=== PATIENT | male | born 1970 | race Caucasian/White ===

== ENCOUNTER 2017-11-24 17:48 | Inpatient (IN) | payer OTHER ==
[2017-11-24 18:32] LABS: #Basophils 0.1 thou/uL (0.0-0.2); #Eosinphils 0.3 thou/uL (0.0-0.7); #Lymphocytes 2.4 thou/uL (1.20-3.40); #Monocytes 0.6 thou/uL (0.11-0.59); #Neutrophils 7.3 thou/uL (1.40-6.50); %Eosinophils 3.2 % (0.0-10.0); %Lymphocytes 22.1 % (21.0-51.0); %Monocytes 5.5 % (0.0-10.0); %Neutrophils 68.2 % (42.0-75.0); Hemoglobin 12.5 g/dL (14.0-18.0); Mean Corpuscular HGB CONC 33.1 g/dL (32.0-36.0); Mean Corpuscular Hemoglobin 31.9 pg (27.0-31.0); Mean Corpuscular Volume 96.3 fl (80.0-94.0); Mean Platelet Volume 7.1 fL (7.4-10.4); Platelet Count 292 thou/uL (130-400); RBC Distribution Width 13.2 % (11.5-14.5); White Blood Cell (WBC) Count 10.7 thou/uL (4.8-10.8)
[2017-11-24 19:00] LABS: ALT (SGPT) 12 U/L (8-55); AST (SGOT) 22 U/L (5-34); Albumin 3.9 g/dL (3.5-5.0); Alkaline Phosphatase 60 U/L (40-150); Anion Gap 11 mmol/L (10-20); BUN (Urea Nitrogen) 15 mg/dL (8.9-20.6); Bilirubin, Total 0.9 mg/dL (0.2-1.2); Calc. Creatinine Clearance 0 mL/min (70-130); Calcium 9.1 mg/dL (7.8-10.44); Carbon Dioxide 25 mmol/L (22-29); Chloride 105 mmol/L (98-107); Estimated GFR-MDRD Greater than 90; Globulin 2.9 g/dL (2.4-3.5); Glucose 74 mg/dL (70-105); Potassium 3.9 mmol/L (3.5-5.1); Protein, Total 6.8 g/dL (6.0-8.3); Sodium 137 mmol/L (136-145)
[2017-11-24 19:00] LABS: Acetaminophen Less than 6.0 mcg/mL (10.0-30.0); Alcohol 24 mg/dL (Less than 10); Salicylate Less than 8.0 mg/dL (15.0-30.0)
[2017-11-24] MEDS ORDERED: Ziprasidone 20 MG VIAL IM SCH (20:30)
[2017-11-24] MEDS ORDERED: Ziprasidone 20 MG VIAL ONE (21:13)
[2017-11-24] MEDS ORDERED: Water For Injection,Sterile 20 ML ONE (21:14)
--- NOTE | 2017-11-24 22:45 | ULT ---
BILATERAL LOWER EXTREMITY VENOUS DUPLEX EXAM: History: Bilateral lower extremity pain and edema. FINDINGS: Real-time color doppler evaluation of the right and left lower extremities was performed from groin t o calf. This includes evaluation of common femoral, superficial, and profunda femoral, saphenous, pop liteal, and trifurcation veins. This shows patent deep venous systems bilaterally with normal svetlana sibility and augmentation. Incidental note is made of prominent left inguinal nodes and an irregularly shaped soft tissue appear ing density in the right groin region measuring 1.3 x 3.9 cm, not a typical appearance of a lymph nod e. It does show what appears to be some internal flow. The patient has a history of previous lymph no de removal in June 2017. Clinical correlation as to what those findings were. IMPRESSION: 1. No evidence of DVT. 2. Bilateral inguinal nodes with an irregularly shaped soft tissue nodule in the right groin region o f uncertain significance. Clinical correlation as to findings of previous lymph node removal recommen ded. POS: [facility]
[2017-11-25 01:23] LABS: Amphetamine Detected (NotDetected); Barbiturates Screen Not Detected (NotDetected); Benzodiazepine Screen Not Detected (NotDetected); Cocaine Metabolite Screen Detected (NotDetected); Medtox Control Line Valid? VALID (VALID); Medtox Reader # READER 4; Methadone Not Detected (NotDetected); Methamphetamine Detected (NotDetected); Opiate Screen Not Detected (NotDetected); Oxycodone Screen Not Detected (NotDetected); Phencyclidine (PCP) Not Detected (NotDetected); THC/Cannabinoid Screen Detected (NotDetected); Tricyclic Screen Not Detected (NotDetected)
[2017-11-25 01:24] LABS: Bilirubin Negative (Negative); Blood, Urine Negative (Negative); Clarity CLEAR (Clear); Glucose, Urine (Dipstick) Negative (Negative); Leukocyte Negative (Negative); Nitrite Negative (Negative); Protein, Urine (Dipstick) Negative (Neg-Trace); Specific Gravity, Urine 1.012 (1.002-1.036); Urobilinogen 0.2 mg/dL (0.2-1.0); pH, Urine 6.5 (5.0-9.0)
[2017-11-25] MEDS ORDERED: Ibuprofen 800 MG TAB ONE (07:47)
[2017-11-25] MEDS ORDERED: Lorazepam 1 MG TAB ONE (08:28)
[2017-11-25] MEDS ORDERED: Acetaminophen/Codeine 30-300mg Tablet ONE (18:09)
--- NOTE | 2017-11-25 20:30 | RAD ---
PORTABLE CHEST: 11/25/17 HISTORY: Cough. Leg swelling. COMPARISON: 10/27/15 study. Heart size is upper limits of normal. Mediastinal structures appear unremarkable. There appears to be a slight scoliotic change to the spine. The lungs are clear of any infiltrative process. IMPRESSION: No active intrathoracic disease. POS: [facility]
[2017-11-25 20:47] LABS: Troponin I Less than 0.010 ng/mL (< 0.028)
[2017-11-25] MEDS ORDERED: Meropenem 1 GM in Sterile Water 20 ML SLOW IVP SCH (21:15)
[2017-11-25] MEDS ORDERED: Multivitamins, Adult 10 ML, Thiamine HCl 100 MG, Folic Acid 1 MG in Dextrose 5 %-0.45 %... IV SCH ×4 (21:15)
[2017-11-25 21:41] LABS: ALT (SGPT) 11 U/L (8-55); AST (SGOT) 18 U/L (5-34); Albumin 3.7 g/dL (3.5-5.0); Alkaline Phosphatase 56 U/L (40-150); Anion Gap 12 mmol/L (10-20); BUN (Urea Nitrogen) 13 mg/dL (8.9-20.6); Bilirubin, Total 1.6 mg/dL (0.2-1.2); CK (CPK) 62 U/L (30-200); Calc. Creatinine Clearance 0 mL/min (70-130); Calcium 8.6 mg/dL (7.8-10.44); Carbon Dioxide 24 mmol/L (22-29); Chloride 106 mmol/L (98-107); Estimated GFR-MDRD Greater than 90; Globulin 2.5 g/dL (2.4-3.5); Glucose 100 mg/dL (70-105); Magnesium 1.6 mg/dL (1.6-2.6); Potassium 3.7 mmol/L (3.5-5.1); Protein, Total 6.2 g/dL (6.0-8.3); Sodium 138 mmol/L (136-145)
[2017-11-25 22:03] LABS: Hemoglobin 12.7 g/dL (14.0-18.0); Mean Corpuscular HGB CONC 32.4 g/dL (32.0-36.0); Mean Corpuscular Hemoglobin 31.5 pg (27.0-31.0); Mean Platelet Volume 7.3 fL (7.4-10.4); Platelet Count 260 thou/uL (130-400); RBC Distribution Width 13.3 % (11.5-14.5); Red Blood Cell (RBC) Count 4.03 mill/uL (4.70-6.10); White Blood Cell (WBC) Count 18.4 thou/uL (4.8-10.8)
[2017-11-25 22:13] LABS: Band 10 % (5-11); Lymphocytes 1 % (21-51); MDiff Complete? YES; Macrocytosis SLIGHT = 6-15 cells (100X) (0-5/hpf); Metamyelocyte 1 % (0-0); Monocytes 1 % (0-10); Neutrophil 87 % (42-75); PLT Morphology Comment Appears Adequate
[2017-11-26] MEDS ORDERED: Acetaminophen 325 MG TAB ONE (01:09)
[2017-11-26] MEDS ORDERED: Acetaminophen 325 MG TAB PO PRN (07:17)
[2017-11-26] MEDS ORDERED: Loperamide HCl 2 MG CAP PO PRN (07:17)
[2017-11-26] MEDS ORDERED: Lorazepam 1 MG TAB PO PRN (07:17)
[2017-11-26] MEDS ORDERED: Eucerin (Mineral Oil/Petrolatum,White) 30 gm Jar TOP PRN (07:17)
[2017-11-26] MEDS ORDERED: Senokot 8.6 MG TAB PO PRN (07:17)
[2017-11-26] MEDS ORDERED: Sodium Chloride 0.65% Nasal 44 ML BOT EA NARE PRN (07:17)
[2017-11-26] MEDS ORDERED: Mag-Al 1200 mg/1200 mg/30 ML UDCUP PO PRN (07:17)
[2017-11-26] MEDS ORDERED: Artificial Tears 18 DROP/0.9 ML EA EYE PRN (07:17)
[2017-11-26] MEDS ORDERED: Milk Of Magnesia 30 ML UDCUP PO PRN (07:17)
[2017-11-26] MEDS ORDERED: Loratadine 10 MG TAB PO PRN (07:17)
[2017-11-26] MEDS ORDERED: Chloraseptic Spray 180 ml Bottle PO PRN (07:17)
[2017-11-26] MEDS ORDERED: Ondansetron ODT 4 MG TAB PO PRN (07:17)
[2017-11-26] MEDS ORDERED: Ondansetron HCl/PF 4 MG/2 ML Vial IVP PRN (07:17)
[2017-11-26] MEDS ORDERED: hydrALAZINE 20 MG/ML VIAL SLOW IVP PRN (07:17)
[2017-11-26] MEDS ORDERED: HYDROcodone/Acetaminophen 5/325 mg Tablet PO PRN (07:17)
[2017-11-26] MEDS ORDERED: Diabetic Tussin 200 MG/10 ML UDCUP PO PRN (07:17)
[2017-11-26] MEDS ORDERED: Zolpidem Tartrate 5 MG TAB PO PRN (07:17)
[2017-11-26] MEDS ORDERED: Vancomycin HCl 1.5 GM in Sodium Chloride 0.9% 250 ML 300 ML IVPB SCH (09:00)
[2017-11-26] MEDS ORDERED: Enoxaparin Sodium 40 MG/0.4 ML SYRINGE ONE (09:08)
[2017-11-26] MEDS ORDERED: Famotidine 20 MG TAB ONE (09:08)
--- NOTE | 2017-11-26 12:05 | HP ---
PRIMARY CARE PHYSICIAN: [facility] call admission. REASON FOR ADMISSION: Suicidal and homicidal ideation, fever, rule out sepsis. HISTORY OF PRESENT ILLNESS: A 47-year-old male who was brought to emergency room for extreme agitation, he was having aggressive behavior. Patient has underlying history of anxiety and depression. He was experiencing homicidal ideation. The patient was telling that he has thought about hurting to someone , but he does not have any particular person to hurt. He also tried to cut his wrist, but he was not able to find knife at home. He was upset and he was very angry and that is why he decided to go to ER for getting help. He requested the ER physician to get admitted in psych facility. He was also having pain in his bilateral groin and he reported that his right lower extremity is hurting. In the emergency room, they did ultrasound, it was negative for any DVT, but he was found with lymph node in his right groin. [facility] was consulted and [facility] already evaluated him in the emergency room, but he developed high grade fever and that is why he was not able to go to inpatient psych facility and subsequently patient is being admitted for rule out sepsis and medical clearance. Patient reports that he has vein problem in his both lower extremities for several years. He had lymph node removed in [facility]. He does not know he had lot of testing done for his lower extremity, but he does not have any clue what they did. He denies any flu-like symptoms. He denies any chest pain. He denies any cough , sore throat. He denies any constipation, diarrhea, or UTI symptoms. In the emergency room, he was found with mild cellulitis. He also had routine blood test, which showed leukocytosis with left shift and bandemia. His urine drug screen was positive for cocaine, cannabinoids, amphetamine, and methamphetamine. He had blood culture and urine culture done and he was given broad spectrum antibiotic therapy and we are admitting him to find source of infection. PAST MEDICAL HISTORY: The patient has recurrent lower extremity cellulitis, predominantly on the right side. PAST PSYCHIATRIC HISTORY: Anxiety, depression, and bipolar disorder. PAST SURGICAL HISTORY: The patient had lymph node removed from his groin. Otherwise, no major surgery. SOCIAL HISTORY: Patient is smoking variable number of cigarettes depending upon money. He also drinks alcohol almost every day. He also has periodic abuse of cannabinoid and cocaine. FAMILY HISTORY: No strong family history of premature coronary artery disease, stroke or cancer. ALLERGIES: No known drug allergies. CURRENT HOME MEDICATIONS: Zanaflex 2 mg at bedtime p.r.n., Seroquel 100 mg at bedtime, Motrin p.r.n. basis, multivitamin daily. REVIEW OF SYSTEMS: The following complete review of systems was negative, unless otherwise mentioned in the HPI or below: Constitutional: Weight loss or gain, ability to conduct usual activities. Skin: Rash, itching. Eyes: Double vision, pain. ENT/Mouth: Nose bleeding, neck stiffness, pain, tenderness. Cardiovascular: Palpitations, dyspnea on exertion, orthopnea. Respiratory: Shortness of breath, wheezing, cough, hemoptysis, fever or night sweats. Gastrointestinal: Poor appetite, abdominal pain, heartburn, nausea, vomiting, constipation, or diarrhea. Genitourinary: Urgency, frequency, dysuria, nocturia. Musculoskeletal: Pain, swelling. Neurologic/Psychiatric: Anxiety, depression. Allergy/Immunologic: Skin rash, bleeding tendency. Please see my HPI for pertinent positive and negative. All other review of systems reviewed and negative except as mentioned in the HPI. EMERGENCY ROOM COURSE: Patient has received vancomycin, meropenem, IV fluid. He was given Ativan and Geodon for his agitation. PHYSICAL EXAMINATION: VITAL SIGNS: On arrival to emergency room, lowest blood pressure 95/57, pulse 91, respiratory rate 16, temperature T-maximum 103, saturation 98% on room air, weight 95.2 kilogram. GENERAL: Patient is currently alert, awake, no obvious acute distress. HEAD: Normocephalic, atraumatic. EYES: Pupils round, reactive to light. Extraocular muscles intact. ENT: Oropharynx within normal limits. Moist mucous membranes. No pharyngeal erythema, no exudate, no lymph nodes palpable. NECK: Supple, no JVD, no thyromegaly, no carotid bruit, no meningeal signs of irritation. LUNGS: Clear to auscultation without any rhonchi or rales. CARDIAC: S1, S2 regular without any murmur, no gallop, no rub. ABDOMEN: Soft, bowel sounds present, nontender, nondistended. No organomegaly , no mass, no suprapubic tenderness. BACK: Examination unremarkable, no CVA tenderness. EXTREMITIES: Upper extremity passive movements of all joints are normal. Lower extremity; patient does have right lower extremity mild edema as well as tenderness and chronic skin changes. The patient does have both groin tenderness more on the right side. NEUROLOGIC: Examination is unremarkable. He is moving all 4 limbs. Speech normal. No focal neurological deficit noted. SKIN: No skin rash other than mild cellulitis on right lower extremity. PSYCHIATRIC: The patient is anxious, poor judgment. He is having suicidal ideation present as well as homicidal ideation present. IMAGING DATA AND SIGNIFICANT LABORATORY DATA: 1. Chest x-ray based on my review, no acute cardiopulmonary process. 2. EKG based on my review reveals normal sinus rhythm within normal limits. 3. Ultrasound of lower extremity negative for DVT. 4. Lymph node palpable on right groin. 5. CBC: WBC 18.4, hemoglobin 12.7, platelet 260 with bandemia. 6. BMP: Sodium 138, potassium 3.7, chloride 106, carbon dioxide 24, BUN 13, creatinine 0.75, glucose 100, and calcium 8.6. 7. LFT: AST 18, ALT 11, alkaline phosphatase 56, albumin 3.7, bilirubin 1.6, magnesium 1.6. TSH 0.1225. Urinalysis normal. Urine drug screen positive for amphetamine, methamphetamine, cocaine, and cannabinoids. Alcohol level 24. Blood culture negative so far. Influenza negative. ASSESSMENT AND PLAN/IMPRESSION: 1. Suicidal and homicidal ideation. This patient voluntarily wants to go to inpatient psych facility for treatment. He has underlying severe anxiety and depression as well as bipolar disorder. Once medically cleared, then we will consult [facility] again and he will need inpatient psychiatric facility upon discharge. 2. Acute febrile illness. Source of infection is probably most likely cellulitis, but he also had multiple drug abuse that may be causing his fever. We will follow up on culture result. We will repeat labs tomorrow. We will continue with empiric antibiotic therapy with Rocephin and vancomycin. 3. Chronic venous insufficiency. The patient is advised to follow up with vein clinic after discharge. At this point, the patient does have on top right lower extremity cellulitis which will be treated with Rocephin and vancomycin. 4. Sepsis/systemic inflammatory response syndrome criteria. This patient has leukocytosis with bandemia, high grade fever. Patient is already on broad spectrum antibiotic therapy and we will continue IV fluid at 125 mL per hour. 5. Polysubstance abuse. This patient has methamphetamine, cocaine, cannabinoids, alcohol and smoking history. Counseling is given to avoid illicit drug abuse. 6. Low TSH. We will check free T4 and free T3. 7. Macrocytic anemia. We will start folic acid, vitamin B12 therapy. 8. Deep venous thrombosis prophylaxis, Lovenox 40 mg subcu daily. 9. Gastrointestinal prophylaxis, Pepcid 20 mg p.o. b.i.d. Code status: The patient is FULL CODE. Patient does not have any surrogate decision maker. He makes his decision by himself. DISPOSITION PLAN: Ultimately, this patient will need inpatient psych facility. We will watch him in the hospital. If he remains afebrile and culture is negative, then we will consider changing to oral antibiotic therapy upon discharge. LEELA
[2017-11-26] MEDS: Enoxaparin Sodium 40 MG/0.4 ML SYRINGE SC SCH (13:36)
[2017-11-26] MEDS: cefTRIAXone\\ROCEPHIN 2 GM in Sodium Chloride 0.9% 100 ML IVPB SCH (13:36)
[2017-11-26] MEDS: Famotidine 20 MG TAB PO SCH ×2 (13:37→20:59)
[2017-11-26] MEDS: Sodium Chloride 0.9% 1,000 ML IV SCH ×2 (13:42→21:00)
[2017-11-26 13:45] LABS: Free T4 (Free Thyroxine) 0.86 ng/dL (0.70-1.48)
[2017-11-26] MEDS: Vancomycin HCl 1 GM in Premix Bag 1 BAG IVPB SCH (16:38)
[2017-11-27] MEDS: Vancomycin HCl 1 GM in Premix Bag 1 BAG IVPB SCH ×3 (00:38→17:08)
[2017-11-27 04:32] LABS: #Basophils 0.1 thou/uL (0.0-0.2); #Eosinphils 0.3 thou/uL (0.0-0.7); #Lymphocytes 1.9 thou/uL (1.20-3.40); #Monocytes 0.4 thou/uL (0.11-0.59); #Neutrophils 2.5 thou/uL (1.40-6.50); %Basophils 1.3 % (0.0-1.0); %Eosinophils 5.7 % (0.0-10.0); %Lymphocytes 36.9 % (21.0-51.0); %Monocytes 7.3 % (0.0-10.0); %Neutrophils 48.8 % (42.0-75.0); Hemoglobin 11.6 g/dL (14.0-18.0); Mean Corpuscular HGB CONC 32.7 g/dL (32.0-36.0); Mean Corpuscular Hemoglobin 32.2 pg (27.0-31.0); Mean Corpuscular Volume 98.6 fl (80.0-94.0); Mean Platelet Volume 7.4 fL (7.4-10.4); Platelet Count 216 thou/uL (130-400); RBC Distribution Width 13.3 % (11.5-14.5); Red Blood Cell (RBC) Count 3.61 mill/uL (4.70-6.10)
[2017-11-27 04:36] LABS: Anion Gap 8 mmol/L (10-20); BUN (Urea Nitrogen) 9 mg/dL (8.9-20.6); Calc. Creatinine Clearance 138 mL/min (70-130); Calcium 8.7 mg/dL (7.8-10.44); Carbon Dioxide 27 mmol/L (22-29); Chloride 107 mmol/L (98-107); Estimated GFR-MDRD Greater than 90; Glucose 101 mg/dL (70-105); Potassium 4.2 mmol/L (3.5-5.1); Sodium 138 mmol/L (136-145)
[2017-11-27 08:39] VITALS: BMI 19.8
[2017-11-27 08:49] LABS: Vancomycin, Trough 22.9 ug/mL
[2017-11-27] MEDS ORDERED: Cyanocobalamin (Vitamin B-12) 1,000 MCG TAB PO SCH (09:00)
[2017-11-27] MEDS ORDERED: Folic Acid 1 MG TAB PO SCH (09:00)
[2017-11-27] MEDS: cefTRIAXone\\ROCEPHIN 2 GM in Sodium Chloride 0.9% 100 ML IVPB SCH (09:44)
[2017-11-27] MEDS: Famotidine 20 MG TAB PO SCH (10:03)
[2017-11-27] MEDS: Enoxaparin Sodium 40 MG/0.4 ML SYRINGE SC SCH (10:03)
[2017-11-27] MEDS: Sodium Chloride 0.9% 1,000 ML IV SCH ×2 (10:05→17:08)
--- NOTE | 2017-11-27 10:42 | DIS ---
PRIMARY CARE PHYSICIAN: [facility] call admission. DATE OF ADMISSION: 11/25/2017 DATE OF DISCHARGE: Pending. DISCHARGE DISPOSITION: Psych facility. PRIMARY DISCHARGE DIAGNOSES: 1. Acute febrile illness. 2. Suspected right lower extremity cellulitis. 3. Suicidal and homicidal ideation. 4. Polysubstance abuse. SECONDARY DISCHARGE DIAGNOSES: Chronic venous insufficiency, anxiety, depression, bipolar disorder, tobacco abuse disorder, polysubstance abuse, chronic venous insufficiency. PRIMARY PROCEDURE/OPERATION: None. RADIOLOGICAL INVESTIGATION: Ultrasound of lower extremity negative for DVT. Chest x-ray normal. Re spiratory virus panel negative, influenza negative. Blood culture negative. DISCHARGE MEDICATIONS: Keflex 500 mg p.o. t.i.d. for 7 days, doxycycline 100 mg twice daily for 7 da ys, vitamin B12 1000 mcg p.o. daily, Pepcid 20 mg p.o. b.i.d., folic acid 1 mg p.o. daily, multivitam in 1 tablet p.o. daily, Seroquel 100 mg p.o. at bedtime., tizanidine 2 mg p.o. at bedtime. CONTRAINDICATIONS: None. CODE STATUS: FULL CODE. INPATIENT CONSULTANTS: [facility]. TEST RESULTS PENDING ON DISCHARGE: None. ALLERGIES: No known drug allergy. DISCHARGE PLAN: Post hospital, the patient will follow up with primary care physician in 1 week. HOSPITAL COURSE: A 47-year-old male who mainly came to the ER for homicidal and suicidal ideation. He has underlying anxiety, depression and bipolar disorder. This patient had an episode of fever in the emergency room and that is why influenza was checked which was negative. Respiratory virus panel was negative. Blood culture was negative. He had only one time fever in the emergency room. Subse quently, he never had any fever. His urine drug screen was positive for multiple illicit drugs. We provided counseling to avoid illicit drug abuse. This patient has homicidal and suicidal ideation and that is why he needs a psych facility placement. He is now medically stable. We are consulting [facility] and if [facility] finds a psych facility, then we madhuri l consider discharging anytime later on today. The patient is seen and examined at bedside today. Please see my progress note from today for furthe r details.
--- NOTE | 2017-11-27 10:48 | PDOC.PN ---
- Subjective Encounter Start Date: 11/27/17 Encounter Start Time: 08:00 -: old records requested/rev Patient seen and examined. No new complaints. No overnight events no fever, doing well, stable - Objective Resuscitation Status: Resuscitation Status FULL:Full Resuscitation MAR Reviewed: Yes Vital Signs & Weight: Vital Signs (12 hours) Temp Pulse Resp BP Pulse Ox 11/27/17 08:00 98.6 F 66 16 99 11/27/17 07:25 98.6 F 66 16 100/66 99 11/27/17 04:00 98.7 F 57 L 16 108/69 99 11/27/17 00:00 98.5 F 52 L 18 95/57 L 100 Weight Admit Weight 159 lb Weight 159 lb I&O: 11/26/17 11/27/17 11/28/17 06:59 06:59 06:59 Intake Total 1800 Balance 1800 Result Diagrams: 11/27/17 03:41 11/27/17 03:41 Phys Exam - Physical Examination Constitutional: NAD HEENT: PERRLA, moist MMs, sclera anicteric Neck: no JVD, supple Respiratory: no wheezing, no rales, no rhonchi Cardiovascular: RRR, no significant murmur, no rub Gastrointestinal: soft, non-tender, no distention, positive bowel sounds Musculoskeletal: no edema, pulses present Neurological: non-focal, normal sensation, moves all 4 limbs Psychiatric: normal affect, A&O x 3 Skin: no rash, normal turgor Dx/Plan (1) Acute febrile illness Code(s): R50.9 - FEVER, UNSPECIFIED Status: Resolved (2) Cellulitis of left leg Code(s): L03.116 - CELLULITIS OF LEFT LOWER LIMB Status: Suspected Comment: Cultures negative, suspect Strep. (3) Lymphadenopathy, inguinal Code(s): R59.0 - LOCALIZED ENLARGED LYMPH NODES Status: Acute Comment: (4) Suicidal ideation Code(s): R45.851 - SUICIDAL IDEATIONS Status: Acute (5) Chronic venous insufficiency Status: Chronic (6) Polysubstance abuse Code(s): F19.10 - OTHER PSYCHOACTIVE SUBSTANCE ABUSE, UNCOMPLICATED Status: Chronic (7) Tobacco abuse Code(s): Z72.0 - TOBACCO USE Status: Chronic - Plan cont current plan of care, continue antibiotics * consult [facility] * change to doxy and keflex empirically, doubt any infection * medically stable for discharge once psych facility arranged * medication reviewed as below * symptomatic treatment * see discharge bib Review of Systems - Review of Systems ENT: negative: Ear Pain, Ear Discharge, Nose Pain, Nose Discharge, Nose Congestion, Mouth Pain, Mouth Swelling, Throat Pain, Throat Swelling, Other Respiratory: negative: Cough, Dry, Shortness of Breath, Hemoptysis, SOB with Excertion, Pleuritic Pain, Sputum, Wheezing Cardiovascular: negative: chest pain, palpitations, orthopnea, paroxysmal nocturnal dyspnea, edema, light headedness, other Gastrointestinal: negative: Nausea, Vomiting, Abdominal Pain, Diarrhea, Constipation, Melena, Hematochezia, Other Genitourinary: negative: Dysuria, Frequency, Incontinence, Hematuria, Retention , Other Musculoskeletal: negative: Neck Pain, Shoulder Pain, Arm Pain, Back Pain, Hand Pain, Leg Pain, Foot Pain, Other Skin: negative: Rash, Lesions, Wang, Bruising, Other - Medications/Allergies Allergies/Adverse Reactions: Allergies Allergy/AdvReac Type Severity Reaction Status Date / Time No Known Allergies Allergy Verified 10/27/15 14:01 Medications: Current Medications Acetaminophen (Tylenol) 650 mg PO Q4H PRN PRN Reason: Headache/Fever or Pain Hydrocodone Bitart/Acetaminophen ([place] 5/325) 1 tab PO Q4H PRN PRN Reason: Moderate Pain (4-6) Last Admin: 11/26/17 16:00 Dose: 1 tab Al Hydroxide/Mg Hydroxide (Maalox) 30 ml PO Q6H PRN PRN Reason: Heartburn or Indigestion Artificial Tears (Tears Naturale) 0 drop EA EYE PRN PRN PRN Reason: Dry Eyes Cyanocobalamin (Vitamin B-12) 1,000 mcg PO DAILY [facility] Last Admin: 11/27/17 10:03 Dose: 1,000 mcg Enoxaparin Sodium (Lovenox) 40 mg SC 0900 [facility] Last Admin: 11/27/17 10:03 Dose: 40 mg Famotidine (Pepcid) 20 mg PO BID [facility] Last Admin: 11/27/17 10:03 Dose: 20 mg Folic Acid (Folvite) 1 mg PO DAILY [facility] Last Admin: 11/27/17 10:03 Dose: 1 mg Guaifenesin (Robitussin Sf) 200 mg PO Q4H PRN PRN Reason: Cough Hydralazine HCl (Apresoline) 10 mg SLOW IVP Q4H PRN PRN Reason: Systolic BP > 180 Ceftriaxone Sodium 2 gm/ (Sodium Chloride) 100 mls @ 200 mls/hr IVPB 0800 [facility] Last Admin: 11/27/17 09:44 Dose: 100 mls Sodium Chloride (Normal Saline 0.9%) 1,000 mls @ 125 mls/hr IV .Q8H [facility] Last Admin: 11/27/17 10:05 Dose: Not Given Vancomycin HCl 1 gm/ Device 200 mls @ 200 mls/hr IVPB 0100,0900,1700 [facility] Last Admin: 11/27/17 00:38 Dose: 200 mls Loperamide HCl (Imodium) 2 mg PO PRN PRN PRN Reason: Diarrhea/Loose Stools Loratadine (Claritin) 10 mg PO DAILYPRN PRN PRN Reason: Sinus Symptoms Lorazepam (Ativan) 1 mg PO Q4H PRN PRN Reason: Anxiety/Agitation Magnesium Hydroxide (Milk Of Magnesium) 30 ml PO DAILYPRN PRN PRN Reason: Constipation Mineral Oil/White Petrolatum (Eucerin Cream) 0 gm TOP BIDPRN PRN PRN Reason: Dry Skin Miscellaneous Medication (Pharmacy To Dose) 0 each IVPB ASDIR PRN PRN Reason: Pharmacy to Dose VANCOMYCIN Ondansetron HCl (Zofran Odt) 4 mg PO Q6H PRN PRN Reason: Nausea/Vomiting Ondansetron HCl (Zofran) 4 mg IVP Q6H PRN PRN Reason: Nausea/Vomiting Phenol (Chloraseptic [place] 180 Ml Bot) 0 ml PO PRN PRN PRN Reason: Sore Throat Senna (Senokot) 2 tab PO HSPRN PRN PRN Reason: Constipation Sodium Chloride ([place] Nasal [place] 0.65%) 0 ml EA NARE QIDPRN PRN PRN Reason: Nasal Congestion Zolpidem Tartrate (Ambien) 5 mg PO HSPRN PRN PRN Reason: Insomnia
[2017-11-27 16:13] VITALS: BP 103/67; TEMP 99.3
--- NOTE | 2017-11-29 12:08 | EKG ---
Test Reason : Blood Pressure : / mmHG Vent. Rate : 098 BPM Atrial Rate : 098 BPM P-R Int : 144 ms QRS Dur : 092 ms QT Int : 338 ms P-R-T Axes : 072 022 039 degrees QTc Int : 431 ms Normal sinus rhythm Low voltage QRS Borderline ECG Confirmed by SERVANDO SELBY, CHEN ([id number]), supervising film or videotape editor RUSH GARCIA ([id number]) on 11/29/2017 12:08:33 PM Referred By: Confirmed By:CHEN AL MD
== END 2017-11-27 18:56 | DRG 885 ==
LOC: ERS 17:48 → ERHOLD 11-25 23:37 → T4-A 11-26 12:47
PROVIDERS: ADMIT Internal Medicine; ATTEND Internal Medicine
DX: F31.9 Bipolar disorder, unspecified (principal); R65.20 Severe sepsis without septic shock; R45.851 Suicidal ideations; A41.9 Sepsis, unspecified organism; L03.115 Cellulitis of right lower limb; R45.850 Homicidal ideations; F41.9 Anxiety disorder, unspecified; Z91.5 Personal history of self-harm; I87.8 Other specified disorders of veins; D53.9 Nutritional anemia, unspecified; F14.10 Cocaine abuse, uncomplicated; F15.10 Other stimulant abuse, uncomplicated; F12.10 Cannabis abuse, uncomplicated; F10.10 Alcohol abuse, uncomplicated; F17.210 Nicotine dependence, cigarettes, uncomplicated
CPT/HCPCS: 36415; 71045; 80048; 80053; 80202; 80306; 80307; 81003; 82550; 83605; 83735; 84439; 84443; 84481; 84484; 85025; 87040; 87633; 87798; 93005; 93970; A4216; J0696; J1650; J2185; J3370; J3411; J3486; J7042; J7050

== ENCOUNTER 2017-12-06 04:02 | Emergency (ER) | payer OTHER | END 2017-12-06 05:13 | disposition home or self-care (01) | LOC: ERS 04:02 | DX: M25.472 Effusion, left ankle (principal); I87.8 Other specified disorders of veins; F31.9 Bipolar disorder, unspecified; F90.9 Attention-deficit hyperactivity disorder, unspecified type; F17.210 Nicotine dependence, cigarettes, uncomplicated; Z79.899 Other long term (current) drug therapy | CPT/HCPCS: 99283 ==

== ENCOUNTER 2017-12-09 22:40 | Emergency (ER) | payer OTHER | END 2017-12-09 23:16 | disposition home or self-care (01) | LOC: ERS 22:40 | DX: M79.605 Pain in left leg (principal); M79.604 Pain in right leg; G89.29 Other chronic pain; F31.9 Bipolar disorder, unspecified; F90.9 Attention-deficit hyperactivity disorder, unspecified type; F41.9 Anxiety disorder, unspecified; F17.210 Nicotine dependence, cigarettes, uncomplicated; Z79.899 Other long term (current) drug therapy | CPT/HCPCS: 99283 ==

== ENCOUNTER 2017-12-17 04:01 | Emergency (ER) | payer OTHER ==
[2017-12-17] MEDS ORDERED: Ibuprofen 800 MG TAB ONE (04:37)
--- NOTE | 2017-12-17 07:57 | RAD ---
PA AND LATERAL CHEST: History: Cough. FINDINGS: Comparison is made with exam of 11-25-17. The heart size is normal. The lungs are expanded without areas of consolidation, pneumothorax, or ple ural effusions. There are degenerative changes of the spine. IMPRESSION: No acute process. POS: [facility]
== END 2017-12-17 04:47 | disposition home or self-care (01) ==
LOC: ERS 04:01
DX: B34.9 Viral infection, unspecified (principal); M79.1 Myalgia; F31.9 Bipolar disorder, unspecified; F90.9 Attention-deficit hyperactivity disorder, unspecified type; F41.9 Anxiety disorder, unspecified; Z79.899 Other long term (current) drug therapy
CPT/HCPCS: 71046; 99406

== ENCOUNTER 2017-12-23 00:21 | Emergency (ER) | payer OTHER | END 2017-12-23 01:25 | disposition left against medical advice (07) | LOC: ERS 00:21 | DX: Z53.21 Procedure and treatment not carried out due to patient leaving prior to being seen by health care provider (principal) ==

== ENCOUNTER 2017-12-24 00:11 | Emergency (ER) | payer OTHER ==
[2017-12-24] MEDS ORDERED: Ketorolac Tromethamine 60 MG/2 ML VIAL ONE (00:37)
== END 2017-12-24 02:07 | disposition home or self-care (01) ==
LOC: ERS 00:11
DX: G89.29 Other chronic pain (principal); M79.662 Pain in left lower leg; F31.9 Bipolar disorder, unspecified; F90.9 Attention-deficit hyperactivity disorder, unspecified type; F17.210 Nicotine dependence, cigarettes, uncomplicated; Z79.899 Other long term (current) drug therapy
CPT/HCPCS: 96372; J1885

== ENCOUNTER 2017-12-31 01:16 | Emergency (ER) | payer OTHER | END 2017-12-31 02:10 | disposition home or self-care (01) | LOC: ERS 01:16 | DX: I73.9 Peripheral vascular disease, unspecified (principal); F31.9 Bipolar disorder, unspecified; F90.9 Attention-deficit hyperactivity disorder, unspecified type; F41.9 Anxiety disorder, unspecified; F17.210 Nicotine dependence, cigarettes, uncomplicated; F17.220 Nicotine dependence, chewing tobacco, uncomplicated | CPT/HCPCS: 99283 ==

== ENCOUNTER 2018-01-06 01:41 | Emergency (ER) | payer OTHER ==
[2018-01-06] MEDS ORDERED: Magnesium Citrate 300 ML BOT ONE (02:39)
--- NOTE | 2018-01-06 08:08 | RAD ---
ABDOMEN ONE VIEW: History: Abdominal pain. FINDINGS: Gas and stool overlie the colon and rectum. Small bowel gas pattern is nonspecific. Phleboliths proje ct over the pelvis. IMPRESSION: No significant abnormalities are demonstrated. POS: [facility]
== END 2018-01-06 02:46 | disposition home or self-care (01) ==
LOC: ERS 01:41
DX: K59.00 Constipation, unspecified (principal); F31.9 Bipolar disorder, unspecified; F90.9 Attention-deficit hyperactivity disorder, unspecified type; F17.210 Nicotine dependence, cigarettes, uncomplicated; Z79.899 Other long term (current) drug therapy
CPT/HCPCS: 74018; 99406

== ENCOUNTER 2018-01-07 00:29 | Emergency (ER) | payer OTHER ==
[2018-01-07] MEDS ORDERED: Ondansetron ODT 8 MG TAB ONE (00:44)
[2018-01-07] MEDS ORDERED: Acetaminophen 500 MG TAB ONE (01:02)
== END 2018-01-07 01:09 | disposition home or self-care (01) ==
LOC: ERS 00:29
DX: B34.9 Viral infection, unspecified (principal); F31.9 Bipolar disorder, unspecified; F90.9 Attention-deficit hyperactivity disorder, unspecified type; F41.9 Anxiety disorder, unspecified; F17.210 Nicotine dependence, cigarettes, uncomplicated; Z79.899 Other long term (current) drug therapy
CPT/HCPCS: 99284

== ENCOUNTER 2018-01-25 21:31 | Inpatient (IN) | payer MEDICAID, OTHER ==
--- NOTE | 2018-01-25 22:20 | RAD ---
AP CHEST: Indication: Fever, left leg weakness. IMPRESSION: No acute abnormality. The examination is not appreciably changed from the comparison dated 11-25-17. POS: [facility]
[2018-01-25 22:31] LABS: Hemoglobin 13.1 g/dL (14.0-18.0); Mean Corpuscular HGB CONC 33.3 g/dL (32.0-36.0); Mean Corpuscular Hemoglobin 31.3 pg (27.0-31.0); Mean Corpuscular Volume 94.1 fl (80.0-94.0); Mean Platelet Volume 7.7 fL (7.4-10.4); Platelet Count 141 thou/uL (130-400); RBC Distribution Width 13.1 % (11.5-14.5); Red Blood Cell (RBC) Count 4.19 mill/uL (4.70-6.10); White Blood Cell (WBC) Count 14.2 thou/uL (4.8-10.8)
[2018-01-25 22:46] LABS: ALT (SGPT) 12 U/L (8-55); AST (SGOT) 15 U/L (5-34); Albumin 3.6 g/dL (3.5-5.0); Alkaline Phosphatase 39 U/L (40-150); Anion Gap 13 mmol/L (10-20); BUN (Urea Nitrogen) 14 mg/dL (8.9-20.6); Calc. Creatinine Clearance 0 mL/min (70-130); Calcium 8.6 mg/dL (7.8-10.44); Carbon Dioxide 24 mmol/L (22-29); Chloride 104 mmol/L (98-107); Estimated GFR-MDRD Greater than 90; Globulin 2.8 g/dL (2.4-3.5); Glucose 98 mg/dL (70-105); Magnesium 1.6 mg/dL (1.6-2.6); Potassium 3.8 mmol/L (3.5-5.1); Protein, Total 6.4 g/dL (6.0-8.3); Sodium 137 mmol/L (136-145)
[2018-01-25 22:49] LABS: Band 6 % (5-11); Lymphocytes 8 % (21-51); MDiff Complete? YES; Neutrophil 86 % (42-75)
[2018-01-25 23:05] LABS: Bilirubin Negative (Negative); Blood, Urine Trace (Negative); Clarity CLEAR (Clear); Glucose, Urine (Dipstick) Negative (Negative); Leukocyte Negative (Negative); Nitrite Negative (Negative); Protein, Urine (Dipstick) Negative (Neg-Trace); Specific Gravity, Urine 1.008 (1.002-1.036); Urobilinogen 0.2 mg/dL (0.2-1.0); pH, Urine 6.5 (5.0-9.0)
[2018-01-25 23:09] LABS: Bacteria/HPF None Seen HPF (None Seen); Hyaline Casts/LPF 0-3 HYALINE CAST LPF (0-3 Hyaline); RBC/HPF 0-3 HPF (0-3); Squamous Epithelial None Seen HPF (0-3); WBC/HPF None Seen HPF (0-3)
[2018-01-26] MEDS ORDERED: cloNIDine 0.1 MG TAB PO PRN (00:51)
[2018-01-26] MEDS ORDERED: Nitroglycerin 0.4 MG TAB (25 Tab Bottle) SL PRN (00:51)
[2018-01-26] MEDS ORDERED: Ondansetron HCl/PF 4 MG/2 ML Vial IVP PRN ×2 (00:51)
[2018-01-26] MEDS ORDERED: Senokot 8.6 MG TAB PO PRN (00:51)
[2018-01-26] MEDS ORDERED: Diabetic Tussin 200 MG/10 ML UDCUP PO PRN (00:51)
[2018-01-26] MEDS ORDERED: Mag-Al 1200 mg/1200 mg/30 ML UDCUP PO PRN (00:51)
[2018-01-26] MEDS ORDERED: hydrALAZINE 20 MG/ML VIAL SLOW IVP PRN (00:51)
[2018-01-26] MEDS ORDERED: Bisacodyl 5 MG TAB PO PRN (00:51)
[2018-01-26] MEDS ORDERED: Benzonatate 100 MG CAP PO PRN (00:51)
[2018-01-26] MEDS ORDERED: Loratadine 10 MG TAB PO PRN (00:51)
[2018-01-26] MEDS ORDERED: Calcium Carbonate 500 MG ChewTAB PO PRN (00:51)
[2018-01-26] MEDS ORDERED: Sodium Chloride 0.9% 1,000 ML IV SCH (01:00)
[2018-01-26] MEDS ORDERED: VANCOMYCIN IVPB PRN (01:33)
[2018-01-26] MEDS: Sodium Chloride 0.9% 1,000 ML IV SCH ×2 (02:25→16:29)
[2018-01-26] MEDS: traMADol HCl 50 MG TAB PO PRN ×2 (02:26→09:03)
[2018-01-26] MEDS: Lorazepam 1 MG TAB PO PRN (02:31)
[2018-01-26 02:50] VITALS: BMI 23.7
--- NOTE | 2018-01-26 02:57 | HP ---
DATE OF ADMISSION: 01/26/2018 CHIEF COMPLAINT: Left lower extremity redness and streaking with fever and chills. HISTORY OF PRESENTING ILLNESS: Mr. Pinon is a 47-year-old male with past medical histor y of bipolar illness and chronic venous insufficiency in the legs, [place], presented to the ER with above-mentioned complaints. History is mainly obtained by the patient himself and bull e has been discussed with admitting ER physician, Dr. Bland. Electronic medical records have been reviewed. He was recently admitted to our facility earlier this year for a right lower extremity nhung lulitis as well as suicidal and homicidal ideation, was discharged to inpatient psych unit. Today, he presented when he started to notice extensive redness involving his left leg since yesterda y. It was associated with some shaking chills and he felt that he also had a fever. He reports that he had a lymph node dissection in the left inguinal region about 6 months ago and that has also turn ed red. He also complains of pain in the left lower extremity as a burning pain. He otherwise denie s any sick contacts. He denies any trauma. He denies any nausea, vomiting, diarrhea. He notes that he has history of the same thing and it happens approximately every 5 years. He denies any history of blood clots in the legs. Upon presentation to the emergency room, his blood pressure was somewhat on the lower side at 105/63. Examination revealed extensive left lower extremity cellulitis as well as lymphangitis with streaki ng up to his inguinal nodes. He received IV antibiotics in the emergency room. He is now being admi tted for left lower extremity cellulitis and acute lymphangitis and inguinal lymphadenopathy. PAST MEDICAL HISTORY: 1. History of bipolar illness. 2. History of suicidal and homicidal ideation. 3. Chronic venous insufficiency. PAST PSYCHIATRIC HISTORY: Anxiety, depression, bipolar disorder. PAST SURGICAL HISTORY: Lymph node removal from his groin. SOCIAL HISTORY: [place] a [place]. 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 FAMILY HISTORY: No significant family history of premature coronary artery disease, stroke or cancer . ALLERGIES: No known medication allergies. HOME MEDICATIONS: He does not remember all of them, but he takes Seroquel, BuSpar, as well as ibupro fen among others. REVIEW OF SYSTEMS: The following complete review of systems was negative, unless otherwise mentioned in the HPI or below: Constitutional: Weight loss or gain, ability to conduct usual activities. Sk in: Rash, itching. Eyes: Double vision, pain. ENT/Mouth: Nose bleeding, neck stiffness, pain, te nderness. Cardiovascular: Palpitations, dyspnea on exertion, orthopnea. Respiratory: Shortness of breath, wheezing, cough, hemoptysis, fever or night sweats. Gastrointestinal: Poor appetite, abdom inal pain, heartburn, nausea, vomiting, constipation, or diarrhea. Genitourinary: Urgency, frequenc y, dysuria, nocturia. Musculoskeletal: Pain, swelling. Neurologic/Psychiatric: Anxiety, depressio n. Allergy/Immunologic: Skin rash, bleeding tendency. It is negative except for those mentioned in the history and physical. LABORATORY DATA: His CBC shows WBCs at 14.2, hemoglobin 13.1, which is largely a macrocytic, 86% donte trophils. Serum chemistries unremarkable. Lactic acid normal at 1.3. Urinalysis normal. Chest x-r ay by my evaluation has no evidence to suggest any acute changes. No effusion, infiltrate or edema. PHYSICAL EXAMINATION: VITAL SIGNS: Most recent vital signs: Blood pressure 91/52, pulse of 86, respirations 16, temperatu re 99.3. His temperature upon presentation was 100.3. Saturating 100% on room air. GENERAL: No acute distress, awake, alert, oriented x3. HEENT: Mucous membrane is slightly dry. No oropharyngeal exudate or erythema. Head is normocephali c, atraumatic. Pupils are equal, reactive to light and accommodation. Extraocular movement intact. NECK: Supple without any lymphadenopathy, JVD or bruit. CHEST: Clear to auscultation without any wheezing, rales or rhonchi. CARDIOVASCULAR: Rate and rhythm is regular without any murmur, rubs or gallops. ABDOMEN: Soft, nontender, nondistended with positive bowel sounds. EXTREMITIES: Upper extremities: Free of any cyanosis, clubbing, or edema. Lower extremity examinat ion reveals severe cellulitis of the left lower extremity extending from his ankle all the way up his mid high. He also has erythema and warmth of prior lymph node excision site. He also has significa nt streaking of left lower extremity from knee to the groin. About a 10 x 4 cm lymph node of the lef t groin with scar from previous incision has also noticed. His leg is warm and tender to touch. NEUROLOGIC: Nonfocal. SKIN: Free of any rashes or bruises. Feels warm and dry to touch. PSYCHIATRIC: Normal affect. IMPRESSION AND PLAN: 1. Sepsis from lower extremity cellulitis. Mr. Pinon will be started on broad spectrum IV antibi otics with vancomycin and Zosyn for now. Blood cultures and urine cultures have been obtained in the emergency room and we will follow the results. He will also be started on generous IV fluids as his blood pressure is on the lower side. Otherwise, he is hemodynamically stable. 2. History of bipolar illness. Resume his BuSpar once the dose is confirmed. The patient has not p icked up any of his rest of his medications from the pharmacy yet. 3. History of chronic venous insufficiency. 4. History of drug abuse, currently abstinent. 5. Code status: FULL CODE. 6. Add deep venous thrombosis and gastrointestinal prophylaxis. DISPOSITION: Mr. Pinon is currently being admitted for sepsis and cellulitis. Estimated length o f stay at least 2-3 midnights. Further management will depend upon his clinical course.
[2018-01-26] MEDS: Piperacillin/Tazobactam 3.375 GM in Sodium Chloride 0.9% 100 ML IVPB SCH ×3 (05:20→17:51)
[2018-01-26 05:57] LABS: #Lymphocytes 0.8 thou/uL (1.20-3.40); #Monocytes 0.2 thou/uL (0.11-0.59); #Neutrophils 10.7 thou/uL (1.40-6.50); %Basophils 0.2 % (0.0-1.0); %Eosinophils 0.2 % (0.0-10.0); %Lymphocytes 6.5 % (21.0-51.0); %Monocytes 1.9 % (0.0-10.0); %Neutrophils 91.3 % (42.0-75.0); Hemoglobin 11.7 g/dL (14.0-18.0); Mean Corpuscular HGB CONC 33.3 g/dL (32.0-36.0); Mean Corpuscular Hemoglobin 32.1 pg (27.0-31.0); Mean Corpuscular Volume 96.6 fl (80.0-94.0); Mean Platelet Volume 8.2 fL (7.4-10.4); Platelet Count 124 thou/uL (130-400); RBC Distribution Width 13.2 % (11.5-14.5); Red Blood Cell (RBC) Count 3.65 mill/uL (4.70-6.10); White Blood Cell (WBC) Count 11.7 thou/uL (4.8-10.8)
[2018-01-26] MEDS ORDERED: Piperacillin/Tazobactam 3.375 GM in Sodium Chloride 0.9% 100 ML IVPB SCH (06:00)
[2018-01-26] MEDS: Vancomycin HCl 1.25 GM in Sodium Chloride 0.9% 250 ML 250 ML IVPB SCH ×3 (06:02→21:34)
[2018-01-26 06:32] LABS: Anion Gap 7 mmol/L (10-20); BUN (Urea Nitrogen) 11 mg/dL (8.9-20.6); Calc. Creatinine Clearance 156 mL/min (70-130); Calcium 8.5 mg/dL (7.8-10.44); Carbon Dioxide 26 mmol/L (22-29); Chloride 109 mmol/L (98-107); Estimated GFR-MDRD Greater than 90; Glucose 105 mg/dL (70-105); Potassium 3.7 mmol/L (3.5-5.1); Sodium 138 mmol/L (136-145)
[2018-01-26] MEDS: Acetaminophen 325 MG TAB PO PRN ×2 (08:48→16:53)
[2018-01-26] MEDS: Enoxaparin Sodium 40 MG/0.4 ML SYRINGE SC SCH (08:49)
[2018-01-26] MEDS ORDERED: Vancomycin HCl 1 GM in Premix Bag 1 BAG IVPB SCH (09:00)
--- NOTE | 2018-01-26 11:45 | PDOC.EVN ---
Event Note - Event Note Event Note: Chart reviewed. Patient seen. Will follow.
[2018-01-26] MEDS ORDERED: busPIRone HCl 5 MG TAB PO SCH (21:00)
[2018-01-26 21:28] LABS: Vancomycin, Trough 11.3 ug/mL
[2018-01-26] MEDS: Vancomycin HCl 1.5 GM in Sodium Chloride 0.9% 250 ML 300 ML IVPB SCH (21:58)
[2018-01-27] MEDS: Piperacillin/Tazobactam 3.375 GM in Sodium Chloride 0.9% 100 ML IVPB SCH ×5 (00:22→23:42)
[2018-01-27] MEDS: Vancomycin HCl 1.5 GM in Sodium Chloride 0.9% 250 ML 300 ML IVPB SCH ×3 (05:46→21:53)
[2018-01-27] MEDS: Enoxaparin Sodium 40 MG/0.4 ML SYRINGE SC SCH (08:15)
[2018-01-27] MEDS: Sodium Chloride 0.9% 1,000 ML IV SCH ×3 (10:02→23:43)
--- NOTE | 2018-01-27 17:21 | PDOC.PN ---
- Subjective Encounter Start Date: 01/27/18 Encounter Start Time: 17:22 Pt seen for followup re: cellulitis. Denies fever or chills. - Objective Vital Signs & Weight: Vital Signs (12 hours) Temp Pulse Resp BP Pulse Ox 01/27/18 16:20 98.4 F 66 16 94/66 99 01/27/18 11:35 98.2 F 76 18 112/73 98 01/27/18 08:00 99.3 F 78 18 99 01/27/18 07:20 99.3 F 78 18 108/73 99 Weight Weight 190 lb I&O: 01/26/18 01/27/18 01/28/18 06:59 06:59 06:59 Intake Total 1600 5240 240 Output Total 1706 6404 450 Balance -100 -1185 -210 Result Diagrams: 01/26/18 05:14 01/26/18 05:14 Phys Exam - Physical Examination Constitutional: NAD HEENT: moist MMs Neck: supple Respiratory: clear to auscultation bilateral Cardiovascular: RRR Gastrointestinal: soft Musculoskeletal: no edema Neurological: moves all 4 limbs Deviation from normal: L groin cellulitis Dx/Plan (1) Cellulitis Code(s): L03.90 - CELLULITIS, UNSPECIFIED Status: Acute Comment: L leg cellulitis clearing up, continue IV antibiotics as below for L groin cellulitis , await blood cultures (2) Bipolar disorder Code(s): F31.9 - BIPOLAR DISORDER, UNSPECIFIED Status: Chronic Comment: stable - Plan continue antibiotics, out of bed/ambulate, DVT proph w/lovenox * . Review of Systems - Review of Systems Constitutional: negative: fever, chills, sweats, weakness, malaise Respiratory: negative: Cough, Dry, Shortness of Breath, Hemoptysis, SOB with Excertion, Pleuritic Pain, Sputum, Wheezing Cardiovascular: negative: chest pain, palpitations, orthopnea, paroxysmal nocturnal dyspnea, edema, light headedness Skin: Rash - Medications/Allergies Allergies/Adverse Reactions: Allergies Allergy/AdvReac Type Severity Reaction Status Date / Time No Known Allergies Allergy Verified 01/26/18 02:48 Medications: Current Medications Acetaminophen (Tylenol) 650 mg PO Q4H PRN PRN Reason: Headache/Fever or Pain Last Admin: 01/26/18 16:53 Dose: 325 mg Al Hydroxide/Mg Hydroxide (Maalox) 30 ml PO Q6H PRN PRN Reason: Heartburn or Indigestion Benzonatate (Tessalon) 100 mg PO Q4H PRN PRN Reason: Cough Bisacodyl (Dulcolax) 10 mg PO DAILYPRN PRN PRN Reason: Constipation Buspirone HCl (Buspar) 5 mg PO HS [facility] Last Admin: 01/26/18 21:08 Dose: 5 mg Calcium Carbonate (Tums) 1,000 mg PO Q4H PRN PRN Reason: Heartburn or Indigestion Clonidine (Catapres) 0.1 mg PO Q4H PRN PRN Reason: Systolic BP > 160 Enoxaparin Sodium (Lovenox) 40 mg SC 0900 [facility] Last Admin: 01/27/18 08:15 Dose: Not Given Guaifenesin (Robitussin Sf) 200 mg PO Q4H PRN PRN Reason: Cough Hydralazine HCl (Apresoline) 10 mg SLOW IVP Q4H PRN PRN Reason: Systolic BP > 170 Sodium Chloride (Normal Saline 0.9%) 1,000 mls @ 100 mls/hr IV .Q10H [facility] Last Admin: 01/27/18 10:02 Dose: 1,000 mls Piperacillin Sod/Tazobactam (Sod 3.375 gm/ Sodium Chloride) 100 mls @ 200 mls/ hr IVPB 0530,1200,1800,2359 [facility] Last Admin: 01/27/18 11:48 Dose: 100 mls Vancomycin HCl 1.5 gm/ Sodium (Chloride) 300 mls @ 200 mls/hr IVPB 0600,1400, 2200 [facility] Last Admin: 01/27/18 13:52 Dose: 300 mls Loratadine (Claritin) 10 mg PO DAILYPRN PRN PRN Reason: Sinus Symptoms Lorazepam (Ativan) 1 mg PO Q4H PRN PRN Reason: Anxiety/Agitation Last Admin: 01/26/18 02:31 Dose: 1 mg Miscellaneous Medication (Pharmacy To Dose) 1 each IVPB PRN PRN PRN Reason: PHARMACY TO DOSE Nitroglycerin (Nitrostat) 0.4 mg SL Q5MIN PRN PRN Reason: Chest Pain Ondansetron HCl (Zofran) 4 mg IVP Q6H PRN PRN Reason: Nausea/Vomiting Ondansetron HCl (Zofran) 4 mg IVP Q6H PRN PRN Reason: Nausea/Vomiting Quetiapine Fumarate (Seroquel) 100 mg PO HS [facility] Last Admin: 01/26/18 21:08 Dose: 100 mg Senna (Senokot) 2 tab PO HSPRN PRN PRN Reason: Constipation Tramadol HCl (Ultram) 50 mg PO Q4H PRN PRN Reason: Moderate Pain (4-6) Last Admin: 01/26/18 09:03 Dose: 50 mg
[2018-01-27] MEDS: busPIRone HCl 5 MG TAB PO SCH (20:37)
[2018-01-27] MEDS: Ibuprofen 800 MG TAB PO SCH (20:37)
[2018-01-27 21:14] LABS: Vancomycin, Trough 18.3 ug/mL
[2018-01-28] MEDS: Piperacillin/Tazobactam 3.375 GM in Sodium Chloride 0.9% 100 ML IVPB SCH ×3 (05:18→17:35)
[2018-01-28] MEDS: Vancomycin HCl 1.5 GM in Sodium Chloride 0.9% 250 ML 300 ML IVPB SCH ×3 (06:08→21:09)
[2018-01-28] MEDS: Enoxaparin Sodium 40 MG/0.4 ML SYRINGE SC SCH (09:04)
--- NOTE | 2018-01-28 13:19 | PDOC.PN ---
- Subjective Encounter Start Date: 01/28/18 Encounter Start Time: 13:17 Subjective: feels much better. leg swelling and redness improving - Objective MAR Reviewed: Yes Vital Signs & Weight: Vital Signs (12 hours) Temp Pulse Resp BP Pulse Ox 01/28/18 08:00 97.6 F 65 16 100 01/28/18 07:05 97.6 F 65 16 115/77 100 Weight Weight 190 lb I&O: 01/27/18 01/28/18 01/29/18 06:59 06:59 06:59 Intake Total 5240 5640 Output Total 6425 4375 Balance -1185 1265 Result Diagrams: 01/26/18 05:14 01/26/18 05:14 Additional Labs: Microbiology 01/25/18 22:34 Urine voided Urine Culture - Final NO GROWTH AT 36 HOURS 01/25/18 22:40 Venous blood - Right Hand Blood Culture - Preliminary NO GROWTH AT 48 HOURS 01/25/18 22:30 Venous blood - Right Arm Blood Culture - Preliminary NO GROWTH AT 48 HOURS Phys Exam - Physical Examination Constitutional: NAD HEENT: PERRLA, moist MMs, sclera anicteric, oral pharynx no lesions Neck: no nodes, no JVD, supple, full ROM Respiratory: no wheezing, no rales, no rhonchi, clear to auscultation bilateral Cardiovascular: RRR, no significant murmur, no rub, gallop Gastrointestinal: soft, non-tender, no distention, positive bowel sounds Musculoskeletal: no edema, pulses present Neurological: non-focal, normal sensation, moves all 4 limbs Psychiatric: normal affect, A&O x 3 Skin: no rash Dx/Plan (1) Cellulitis Code(s): L03.90 - CELLULITIS, UNSPECIFIED Status: Acute Comment: L leg cellulitis clearing up, continue IV antibiotics as below for L groin cellulitis , await blood cultures (2) Lymphangitis Code(s): I89.1 - LYMPHANGITIS Status: Acute (3) Bipolar disorder Code(s): F31.9 - BIPOLAR DISORDER, UNSPECIFIED Status: Chronic Comment: stable (4) Chronic venous insufficiency Status: Chronic (5) Tobacco abuse Code(s): Z72.0 - TOBACCO USE Status: Chronic - Plan DVT proph w/SCDs cont IV ABx,clinically better. all Cx negative so far -: chris SINCLAIR home in am w PO ABx -: dc IVF * . Review of Systems - Review of Systems Constitutional: negative: fever, chills, sweats, weakness, malaise, other ENT: negative: Ear Pain, Ear Discharge, Nose Pain, Nose Discharge, Nose Congestion, Mouth Pain, Mouth Swelling, Throat Pain, Throat Swelling, Other Respiratory: negative: Cough, Dry, Shortness of Breath, Hemoptysis, SOB with Excertion, Pleuritic Pain, Sputum, Wheezing Cardiovascular: negative: chest pain, palpitations, orthopnea, paroxysmal nocturnal dyspnea, edema, light headedness, other Gastrointestinal: negative: Nausea, Vomiting, Abdominal Pain, Diarrhea, Constipation, Melena, Hematochezia, Other Genitourinary: negative: Dysuria, Frequency, Incontinence, Hematuria, Retention , Other Musculoskeletal: negative: Neck Pain, Shoulder Pain, Arm Pain, Back Pain, Hand Pain, Leg Pain, Foot Pain, Other Skin: negative: Rash, Lesions, Wang, Bruising, Other Neurological: negative: Weakness, Numbness, Incoordination, Change in Speech, Confusion, Seizures, Other - Medications/Allergies Allergies/Adverse Reactions: Allergies Allergy/AdvReac Type Severity Reaction Status Date / Time No Known Allergies Allergy Verified 01/26/18 02:48 Medications: Current Medications Acetaminophen (Tylenol) 650 mg PO Q4H PRN PRN Reason: Headache/Fever or Pain Last Admin: 01/26/18 16:53 Dose: 325 mg Al Hydroxide/Mg Hydroxide (Maalox) 30 ml PO Q6H PRN PRN Reason: Heartburn or Indigestion Benzonatate (Tessalon) 100 mg PO Q4H PRN PRN Reason: Cough Bisacodyl (Dulcolax) 10 mg PO DAILYPRN PRN PRN Reason: Constipation Buspirone HCl (Buspar) 5 mg PO HS [facility] Last Admin: 01/27/18 20:37 Dose: 5 mg Calcium Carbonate (Tums) 1,000 mg PO Q4H PRN PRN Reason: Heartburn or Indigestion Clonidine (Catapres) 0.1 mg PO Q4H PRN PRN Reason: Systolic BP > 160 Enoxaparin Sodium (Lovenox) 40 mg SC 0900 [facility] Last Admin: 01/28/18 09:04 Dose: Not Given Guaifenesin (Robitussin Sf) 200 mg PO Q4H PRN PRN Reason: Cough Hydralazine HCl (Apresoline) 10 mg SLOW IVP Q4H PRN PRN Reason: Systolic BP > 170 Sodium Chloride (Normal Saline 0.9%) 1,000 mls @ 100 mls/hr IV .Q10H [facility] Last Admin: 01/27/18 23:43 Dose: 1,000 mls Piperacillin Sod/Tazobactam (Sod 3.375 gm/ Sodium Chloride) 100 mls @ 200 mls/ hr IVPB 0530,1200,1800,2359 [facility] Last Admin: 01/28/18 12:25 Dose: 100 mls Vancomycin HCl 1.5 gm/ Sodium (Chloride) 300 mls @ 200 mls/hr IVPB 0600,1400, 2200 [facility] Last Admin: 01/28/18 06:08 Dose: 300 mls Ibuprofen (Motrin) 800 mg PO HS [facility] Last Admin: 01/27/18 20:37 Dose: 800 mg Loratadine (Claritin) 10 mg PO DAILYPRN PRN PRN Reason: Sinus Symptoms Lorazepam (Ativan) 1 mg PO Q4H PRN PRN Reason: Anxiety/Agitation Last Admin: 01/26/18 02:31 Dose: 1 mg Miscellaneous Medication (Pharmacy To Dose) 1 each IVPB PRN PRN PRN Reason: PHARMACY TO DOSE Nitroglycerin (Nitrostat) 0.4 mg SL Q5MIN PRN PRN Reason: Chest Pain Ondansetron HCl (Zofran) 4 mg IVP Q6H PRN PRN Reason: Nausea/Vomiting Ondansetron HCl (Zofran) 4 mg IVP Q6H PRN PRN Reason: Nausea/Vomiting Quetiapine Fumarate (Seroquel) 100 mg PO [facility] Last Admin: 01/27/18 20:37 Dose: 100 mg Senna (Senokot) 2 tab PO HSPRN PRN PRN Reason: Constipation Tramadol HCl (Ultram) 50 mg PO Q4H PRN PRN Reason: Moderate Pain (4-6) Last Admin: 01/26/18 09:03 Dose: 50 mg
[2018-01-28] MEDS: Sodium Chloride 0.9% 1,000 ML IV SCH (18:11)
[2018-01-28] MEDS: Ibuprofen 800 MG TAB PO SCH (21:10)
[2018-01-28] MEDS: busPIRone HCl 5 MG TAB PO SCH (21:10)
[2018-01-28] MEDS: Lorazepam 1 MG TAB PO PRN (21:10)
[2018-01-29] MEDS: Piperacillin/Tazobactam 3.375 GM in Sodium Chloride 0.9% 100 ML IVPB SCH ×3 (00:23→14:31)
[2018-01-29] MEDS: Sodium Chloride 0.9% 1,000 ML IV SCH (05:01)
[2018-01-29] MEDS: Vancomycin HCl 1.5 GM in Sodium Chloride 0.9% 250 ML 300 ML IVPB SCH (05:38)
[2018-01-29 08:46] VITALS: BP 108/71; TEMP 99
[2018-01-29 09:32] LABS: Anion Gap 8 mmol/L (10-20); BUN (Urea Nitrogen) 9 mg/dL (8.9-20.6); Calc. Creatinine Clearance 150 mL/min (70-130); Calcium 9.2 mg/dL (7.8-10.44); Carbon Dioxide 32 mmol/L (22-29); Chloride 105 mmol/L (98-107); Estimated GFR-MDRD Greater than 90; Glucose 88 mg/dL (70-105); Potassium 3.5 mmol/L (3.5-5.1); Sodium 141 mmol/L (136-145)
[2018-01-29] MEDS: Enoxaparin Sodium 40 MG/0.4 ML SYRINGE SC SCH (11:37)
--- NOTE | 2018-01-29 14:27 | DIS ---
DATE OF ADMISSION: 01/26/2018 DATE OF DISCHARGE: 01/29/2018 CONDITION AT THE TIME OF DISCHARGE: Stable and improved. DISCHARGE DIAGNOSES: 1. Cellulitis of left lower extremity with ascending lymphangitis. 2. History of bipolar disorder. 3. Chronic venous insufficiency. 4. Tobacco abuse. DISCHARGE MEDICATIONS: Keflex 250 mg p.o. b.i.d. for 7 more days, Florastor 250 mg daily for 10 days , Seroquel 100 mg daily, ibuprofen as needed, and buspirone 5 mg daily. DISCHARGE DISPOSITION: Back to [place]. PRIMARY CARE PHYSICIAN: None. HISTORY OF PRESENTING ILLNESS: Mr. 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 He was found to have extensive cellulitis with ascending lymphangitis . It went all the way up to his lymph node in the left groin which has been resected in the past for the same reason. He was started on broad spectrum IV antibiotics and IV fluids and was admitted. Ga polanco see admission history and physical for further details. HOSPITAL COURSE: The patient had a remarkable recovery within few days with IV antibiotics and all o f his swelling and redness and erythema was gone. Eventually was transitioned to oral antibiotics an d was discharged earlier today. He is instructed to follow up with the primary care physician evelio taylor. Antibiotics will be continued as oral supplement outside. He was seen and examined prior to discharge. PHYSICAL EXAMINATION: Today includes, VITAL SIGNS: Temperature 99, pulse of 77, respirations 18, saturating 98% on room air, blood pressur e 108/71. GENERAL: No acute distress, awake, alert, oriented x3. CHEST: Clear to auscultation bilaterally. HEART: Rate and rhythm is regular. EXTREMITIES: Left lower extremity is free of any swelling, erythema, tenderness, or warmth. LABORATORY DATA: His blood cultures and urine culture remained negative till date.
== END 2018-01-29 12:36 | disposition home or self-care (01) | DRG 603 ==
LOC: ERS 21:31 → ONC 01-26 00:44
PROVIDERS: ADMIT Internal Medicine; ATTEND Internal Medicine
DX: L03.116 Cellulitis of left lower limb (principal); I87.2 Venous insufficiency (chronic) (peripheral); F17.210 Nicotine dependence, cigarettes, uncomplicated; F31.9 Bipolar disorder, unspecified
CPT/HCPCS: 36415; 71045; 80048; 80053; 80202; 81003; 81015; 83605; 83735; 85025; 87040; 87086; 96361; 96365; 96375; J0696; J1650; J2543; J3370; J7050

== ENCOUNTER 2018-02-26 20:11 | Emergency (ER) | payer OTHER ==
[2018-02-26] MEDS ORDERED: Ziprasidone 20 MG VIAL ONE (20:28)
[2018-02-26] MEDS ORDERED: Water For Inject, Bacteriostat 30 ML ONE (20:29)
[2018-02-26 20:49] LABS: #Basophils 0.1 thou/uL (0.0-0.2); #Eosinphils 0.2 thou/uL (0.0-0.7); #Lymphocytes 3.8 thou/uL (1.20-3.40); #Monocytes 0.8 thou/uL (0.11-0.59); #Neutrophils 7.2 thou/uL (1.40-6.50); %Basophils 0.9 % (0.0-1.0); %Eosinophils 1.7 % (0.0-10.0); %Lymphocytes 31.6 % (21.0-51.0); %Monocytes 6.4 % (0.0-10.0); %Neutrophils 59.5 % (42.0-75.0); Hemoglobin 13.3 g/dL (14.0-18.0); Mean Corpuscular HGB CONC 33.9 g/dL (32.0-36.0); Mean Corpuscular Hemoglobin 31.4 pg (27.0-31.0); Mean Corpuscular Volume 92.5 fl (80.0-94.0); Mean Platelet Volume 7.1 fL (7.4-10.4); Platelet Count 225 thou/uL (130-400); Red Blood Cell (RBC) Count 4.25 mill/uL (4.70-6.10); White Blood Cell (WBC) Count 12.1 thou/uL (4.8-10.8)
[2018-02-26 21:08] LABS: ALT (SGPT) 12 U/L (8-55); AST (SGOT) 23 U/L (5-34); Acetaminophen Less than 6.0 mcg/mL (10.0-30.0); Albumin 4.6 g/dL (3.5-5.0); Alcohol 52 mg/dL (Less than 10); Alkaline Phosphatase 58 U/L (40-150); Anion Gap 17 mmol/L (10-20); BUN (Urea Nitrogen) 16 mg/dL (8.9-20.6); Calc. Creatinine Clearance 0 mL/min (70-130); Calcium 9.4 mg/dL (7.8-10.44); Carbon Dioxide 21 mmol/L (22-29); Chloride 102 mmol/L (98-107); Estimated GFR-MDRD 88; Globulin 3.2 g/dL (2.4-3.5); Glucose 75 mg/dL (70-105); Potassium 3.8 mmol/L (3.5-5.1); Protein, Total 7.8 g/dL (6.0-8.3); Salicylate Less than 8.0 mg/dL (15.0-30.0); Sodium 136 mmol/L (136-145)
[2018-02-26 21:28] LABS: Bilirubin Negative (Negative); Blood, Urine Negative (Negative); Clarity CLEAR (Clear); Glucose, Urine (Dipstick) Negative (Negative); Leukocyte Negative (Negative); Nitrite Negative (Negative); Protein, Urine (Dipstick) Negative (Neg-Trace); Specific Gravity, Urine 1.007 (1.002-1.036); Urobilinogen 0.2 mg/dL (0.2-1.0); pH, Urine 5.5 (5.0-9.0)
[2018-02-26 21:37] LABS: Amphetamine Not Detected (NotDetected); Barbiturates Screen Not Detected (NotDetected); Benzodiazepine Screen Not Detected (NotDetected); Cocaine Metabolite Screen Not Detected (NotDetected); Medtox Control Line Valid? VALID (VALID); Medtox Reader # READER 4; Methadone Not Detected (NotDetected); Methamphetamine Not Detected (NotDetected); Opiate Screen Not Detected (NotDetected); Oxycodone Screen Not Detected (NotDetected); Phencyclidine (PCP) Not Detected (NotDetected); THC/Cannabinoid Screen Not Detected (NotDetected); Tricyclic Screen Not Detected (NotDetected)
[2018-02-27] MEDS ORDERED: Ibuprofen 200 MG TAB ONE (01:42)
== END 2018-02-27 01:47 | disposition home or self-care (01) ==
LOC: ERS 20:11
DX: F43.20 Adjustment disorder, unspecified (principal); R45.850 Homicidal ideations; R40.0 Somnolence; F31.9 Bipolar disorder, unspecified; F90.9 Attention-deficit hyperactivity disorder, unspecified type; F41.9 Anxiety disorder, unspecified; F17.210 Nicotine dependence, cigarettes, uncomplicated; Z71.6 Tobacco abuse counseling
CPT/HCPCS: 36415; 80053; 80306; 80307; 81003; 82550; 84443; 85025; 93005; 96360; 96372; 99406; J3486

== ENCOUNTER 2018-03-05 22:44 | Emergency (ER) | payer OTHER | END 2018-03-06 01:38 | disposition home or self-care (01) | LOC: ERS 22:44 | DX: L03.115 Cellulitis of right lower limb (principal); R60.0 Localized edema; F31.9 Bipolar disorder, unspecified; F41.9 Anxiety disorder, unspecified; F90.9 Attention-deficit hyperactivity disorder, unspecified type; F17.210 Nicotine dependence, cigarettes, uncomplicated; Z79.899 Other long term (current) drug therapy | CPT/HCPCS: 99283 ==

== ENCOUNTER 2018-03-10 05:03 | Emergency (ER) | payer OTHER | END 2018-03-10 06:59 | disposition left against medical advice (07) | LOC: ERS 05:03 | DX: Z53.21 Procedure and treatment not carried out due to patient leaving prior to being seen by health care provider (principal) ==

== ENCOUNTER 2018-03-12 14:49 | Emergency (ER) | payer OTHER ==
[2018-03-12] MEDS ORDERED: cefTRIAXone\\ROCEPHIN 1 GM VIAL ONE (18:48)
[2018-03-12] MEDS ORDERED: Lidocaine 1% PF 5 ML VIAL ONE ×2 (18:48→18:51)
== END 2018-03-12 19:18 | disposition home or self-care (01) ==
LOC: ERS 14:49
DX: L03.115 Cellulitis of right lower limb (principal); F31.9 Bipolar disorder, unspecified; F90.9 Attention-deficit hyperactivity disorder, unspecified type; F41.9 Anxiety disorder, unspecified; F17.210 Nicotine dependence, cigarettes, uncomplicated
CPT/HCPCS: 96372; J0696; J2001

== ENCOUNTER 2018-03-15 17:13 | Emergency (ER) | payer OTHER ==
[2018-03-15 19:54] LABS: #Basophils 0.1 thou/uL (0.0-0.2); #Eosinphils 0.2 thou/uL (0.0-0.7); #Lymphocytes 3.4 thou/uL (1.20-3.40); #Monocytes 0.6 thou/uL (0.11-0.59); #Neutrophils 3.2 thou/uL (1.40-6.50); %Basophils 0.7 % (0.0-1.0); %Eosinophils 2.7 % (0.0-10.0); %Lymphocytes 46.2 % (21.0-51.0); %Monocytes 7.9 % (0.0-10.0); %Neutrophils 42.6 % (42.0-75.0); Hemoglobin 13.1 g/dL (14.0-18.0); Mean Corpuscular HGB CONC 33.4 g/dL (32.0-36.0); Mean Corpuscular Hemoglobin 31.4 pg (27.0-31.0); Mean Corpuscular Volume 94.3 fl (80.0-94.0); Mean Platelet Volume 6.3 fL (7.4-10.4); Platelet Count 329 thou/uL (130-400); RBC Distribution Width 13.3 % (11.5-14.5); Red Blood Cell (RBC) Count 4.16 mill/uL (4.70-6.10); White Blood Cell (WBC) Count 7.5 thou/uL (4.8-10.8)
[2018-03-15 20:17] LABS: ALT (SGPT) 23 U/L (8-55); AST (SGOT) 34 U/L (5-34); Acetaminophen Less than 6.0 mcg/mL (10.0-30.0); Albumin 4.2 g/dL (3.5-5.0); Alcohol Less than 10 mg/dL (Less than 10); Alkaline Phosphatase 66 U/L (40-150); Anion Gap 10 mmol/L (10-20); BUN (Urea Nitrogen) 12 mg/dL (8.9-20.6); CK (CPK) 214 U/L (30-200); Calc. Creatinine Clearance 0 mL/min (70-130); Calcium 9.5 mg/dL (7.8-10.44); Carbon Dioxide 28 mmol/L (22-29); Chloride 99 mmol/L (98-107); Estimated GFR-MDRD Greater than 90; Globulin 3.4 g/dL (2.4-3.5); Glucose 120 mg/dL (70-105); Potassium 3.2 mmol/L (3.5-5.1); Protein, Total 7.6 g/dL (6.0-8.3); Salicylate Less than 8.0 mg/dL (15.0-30.0); Sodium 134 mmol/L (136-145)
[2018-03-15] MEDS ORDERED: Adacel (T-DAP) 0.5 ML VIAL ONE (20:33)
[2018-03-15] MEDS ORDERED: Potassium Bicarbonate/Cit Ac 25 MEQ TAB ONE (20:34)
[2018-03-15 20:41] LABS: Bilirubin Negative (Negative); Blood, Urine Negative (Negative); Clarity CLEAR (Clear); Glucose, Urine (Dipstick) Negative (Negative); Leukocyte Negative (Negative); Nitrite Negative (Negative); Protein, Urine (Dipstick) Negative (Neg-Trace); Specific Gravity, Urine 1.012 (1.002-1.036); Urobilinogen 0.2 mg/dL (0.2-1.0); pH, Urine 6.5 (5.0-9.0)
[2018-03-15] MEDS ORDERED: Clindamycin 150 MG CAP PO SCH ×2 (20:45→22:00)
[2018-03-15 20:52] LABS: Amphetamine Not Detected (NotDetected); Barbiturates Screen Not Detected (NotDetected); Benzodiazepine Screen Not Detected (NotDetected); Cocaine Metabolite Screen Not Detected (NotDetected); Medtox Control Line Valid? VALID (VALID); Medtox Reader # READER 4; Methadone Not Detected (NotDetected); Methamphetamine Not Detected (NotDetected); Opiate Screen Not Detected (NotDetected); Oxycodone Screen Not Detected (NotDetected); Phencyclidine (PCP) Not Detected (NotDetected); THC/Cannabinoid Screen Not Detected (NotDetected); Tricyclic Screen Not Detected (NotDetected)
== END 2018-03-16 01:57 ==
LOC: ERS 17:13
DX: R45.850 Homicidal ideations (principal); F31.9 Bipolar disorder, unspecified; F41.9 Anxiety disorder, unspecified; F90.9 Attention-deficit hyperactivity disorder, unspecified type; F17.210 Nicotine dependence, cigarettes, uncomplicated; I73.9 Peripheral vascular disease, unspecified; Z79.899 Other long term (current) drug therapy; Z23 Encounter for immunization
CPT/HCPCS: 36415; 80053; 80306; 80307; 81003; 82550; 84443; 85025; 90471; 90715

== ENCOUNTER 2018-03-28 13:25 | Emergency (ER) | payer OTHER, SELFPAY ==
[2018-03-28 14:15] LABS: #Basophils 0.1 thou/uL (0.0-0.2); #Eosinphils 0.1 thou/uL (0.0-0.7); #Lymphocytes 2.3 thou/uL (1.20-3.40); #Monocytes 0.7 thou/uL (0.11-0.59); #Neutrophils 3.3 thou/uL (1.40-6.50); %Basophils 1.3 % (0.0-1.0); %Lymphocytes 35.4 % (21.0-51.0); %Monocytes 11.4 % (0.0-10.0); %Neutrophils 50.9 % (42.0-75.0); Hemoglobin 13.1 g/dL (14.0-18.0); Mean Corpuscular HGB CONC 33.9 g/dL (32.0-36.0); Mean Corpuscular Hemoglobin 31.8 pg (27.0-31.0); Mean Corpuscular Volume 93.6 fl (80.0-94.0); Mean Platelet Volume 7.2 fL (7.4-10.4); Platelet Count 253 thou/uL (130-400); RBC Distribution Width 13.2 % (11.5-14.5); Red Blood Cell (RBC) Count 4.12 mill/uL (4.70-6.10); White Blood Cell (WBC) Count 6.4 thou/uL (4.8-10.8)
--- NOTE | 2018-03-28 14:15 | RAD ---
LEFT FOOT 3 VIEWS: Date: 03/28/18 HISTORY: 47-year-old male with history of injury to left foot. FINDINGS: Mild degenerative changes. No acute fracture or dislocation. IMPRESSION: Mild left foot degenerative change. POS: [facility]
[2018-03-28 14:34] LABS: ALT (SGPT) 16 U/L (8-55); AST (SGOT) 23 U/L (5-34); Albumin 4.5 g/dL (3.5-5.0); Alkaline Phosphatase 60 U/L (40-150); Anion Gap 10 mmol/L (10-20); BUN (Urea Nitrogen) 9 mg/dL (8.9-20.6); Bilirubin, Total 1.4 mg/dL (0.2-1.2); CK (CPK) 286 U/L (30-200); Calc. Creatinine Clearance 0 mL/min (70-130); Calcium 9.4 mg/dL (7.8-10.44); Carbon Dioxide 33 mmol/L (22-29); Chloride 98 mmol/L (98-107); Estimated GFR-MDRD Greater than 90; Globulin 3.3 g/dL (2.4-3.5); Glucose 79 mg/dL (70-105); Lipase 59 U/L (8-78); Potassium 3.4 mmol/L (3.5-5.1); Protein, Total 7.8 g/dL (6.0-8.3); Sodium 138 mmol/L (136-145)
[2018-03-28 14:40] LABS: Bilirubin Negative (Negative); Blood, Urine Negative (Negative); Clarity CLEAR (Clear); Glucose, Urine (Dipstick) Negative (Negative); Leukocyte Negative (Negative); Nitrite Negative (Negative); Protein, Urine (Dipstick) Negative (Neg-Trace); Specific Gravity, Urine 1.009 (1.002-1.036); Urobilinogen 0.2 mg/dL (0.2-1.0); pH, Urine 7.5 (5.0-9.0)
== END 2018-03-28 16:15 | disposition home or self-care (01) ==
LOC: ERS 13:25
DX: E86.0 Dehydration (principal); Z71.6 Tobacco abuse counseling; F31.9 Bipolar disorder, unspecified; F90.9 Attention-deficit hyperactivity disorder, unspecified type; F41.9 Anxiety disorder, unspecified; F17.210 Nicotine dependence, cigarettes, uncomplicated; Z79.899 Other long term (current) drug therapy
CPT/HCPCS: 80053; 81003; 82550; 83690; 85025; 93005; 96360; 96361; 99406

== ENCOUNTER 2018-03-29 12:04 | Emergency (ER) | payer SELFPAY ==
[2018-03-29 12:38] LABS: #Basophils 0.1 thou/uL (0.0-0.2); #Eosinphils 0.1 thou/uL (0.0-0.7); #Lymphocytes 2.4 thou/uL (1.20-3.40); #Monocytes 0.6 thou/uL (0.11-0.59); #Neutrophils 3.1 thou/uL (1.40-6.50); %Basophils 1.2 % (0.0-1.0); %Eosinophils 2.2 % (0.0-10.0); %Lymphocytes 37.8 % (21.0-51.0); %Monocytes 9.7 % (0.0-10.0); %Neutrophils 49.1 % (42.0-75.0); Hemoglobin 12.7 g/dL (14.0-18.0); Mean Corpuscular HGB CONC 33.6 g/dL (32.0-36.0); Mean Corpuscular Hemoglobin 31.3 pg (27.0-31.0); Mean Corpuscular Volume 93.1 fl (80.0-94.0); Mean Platelet Volume 7.2 fL (7.4-10.4); Platelet Count 211 thou/uL (130-400); RBC Distribution Width 13.1 % (11.5-14.5); Red Blood Cell (RBC) Count 4.05 mill/uL (4.70-6.10); White Blood Cell (WBC) Count 6.3 thou/uL (4.8-10.8)
[2018-03-29 12:58] LABS: ALT (SGPT) 15 U/L (8-55); AST (SGOT) 25 U/L (5-34); Albumin 4.3 g/dL (3.5-5.0); Alkaline Phosphatase 62 U/L (40-150); Anion Gap 10 mmol/L (10-20); BUN (Urea Nitrogen) 14 mg/dL (8.9-20.6); Calc. Creatinine Clearance 0 mL/min (70-130); Calcium 9.6 mg/dL (7.8-10.44); Carbon Dioxide 29 mmol/L (22-29); Chloride 100 mmol/L (98-107); Estimated GFR-MDRD Greater than 90; Globulin 3.2 g/dL (2.4-3.5); Glucose 117 mg/dL (70-105); Potassium 3.3 mmol/L (3.5-5.1); Protein, Total 7.5 g/dL (6.0-8.3); Sodium 136 mmol/L (136-145)
[2018-03-29 13:02] LABS: CKMB 2.1 ng/mL (0-6.6); Troponin I Less than 0.010 ng/mL (< 0.028)
--- NOTE | 2018-03-29 13:38 | RAD ---
PORTABLE CHEST 1 VIEW: Date: 03/29/18 Time: 1230 hours HISTORY: Chest pain. FINDINGS: Comparison made with exam of 01/25/18. The heart size is normal. The lungs are expanded without focal areas of consolidation, pneumothorax, or pleural effusions. IMPRESSION: No radiographic evidence of acute cardiopulmonary process. POS: [facility]
== END 2018-03-29 14:19 | disposition left against medical advice (07) ==
LOC: ERS 12:04
DX: F43.9 Reaction to severe stress, unspecified (principal); F32.9 Major depressive disorder, single episode, unspecified; F90.9 Attention-deficit hyperactivity disorder, unspecified type; F41.9 Anxiety disorder, unspecified; F17.210 Nicotine dependence, cigarettes, uncomplicated; Z79.899 Other long term (current) drug therapy
CPT/HCPCS: 71045; 80053; 82553; 84484; 85025; 93005

== ENCOUNTER 2018-03-30 21:12 | Emergency (ER) | payer OTHER ==
[2018-03-30 22:36] LABS: #Basophils 0.1 thou/uL (0.0-0.2); #Eosinphils 0.3 thou/uL (0.0-0.7); #Lymphocytes 3.3 thou/uL (1.20-3.40); #Monocytes 0.8 thou/uL (0.11-0.59); #Neutrophils 4.1 thou/uL (1.40-6.50); %Basophils 0.6 % (0.0-1.0); %Eosinophils 3.5 % (0.0-10.0); %Lymphocytes 38.8 % (21.0-51.0); %Neutrophils 48.2 % (42.0-75.0); Hemoglobin 12.3 g/dL (14.0-18.0); Mean Corpuscular HGB CONC 33.3 g/dL (32.0-36.0); Mean Corpuscular Hemoglobin 30.9 pg (27.0-31.0); Mean Platelet Volume 6.8 fL (7.4-10.4); Platelet Count 209 thou/uL (130-400); RBC Distribution Width 13.1 % (11.5-14.5); Red Blood Cell (RBC) Count 3.98 mill/uL (4.70-6.10); White Blood Cell (WBC) Count 8.5 thou/uL (4.8-10.8)
[2018-03-30 22:58] LABS: ALT (SGPT) 15 U/L (8-55); AST (SGOT) 25 U/L (5-34); Albumin 4.2 g/dL (3.5-5.0); Alkaline Phosphatase 66 U/L (40-150); Anion Gap 12 mmol/L (10-20); BUN (Urea Nitrogen) 17 mg/dL (8.9-20.6); Bilirubin, Total 0.7 mg/dL (0.2-1.2); Calc. Creatinine Clearance 0 mL/min (70-130); Calcium 9.5 mg/dL (7.8-10.44); Carbon Dioxide 28 mmol/L (22-29); Chloride 103 mmol/L (98-107); Estimated GFR-MDRD Greater than 90; Globulin 3.2 g/dL (2.4-3.5); Glucose 87 mg/dL (70-105); Protein, Total 7.4 g/dL (6.0-8.3); Sodium 139 mmol/L (136-145)
== END 2018-03-31 00:30 | disposition left against medical advice (07) ==
LOC: ERS 21:12
DX: R60.0 Localized edema (principal); Q35.9 Cleft palate, unspecified; F32.9 Major depressive disorder, single episode, unspecified; F90.9 Attention-deficit hyperactivity disorder, unspecified type; F41.9 Anxiety disorder, unspecified; F17.210 Nicotine dependence, cigarettes, uncomplicated; Z86.79 Personal history of other diseases of the circulatory system
CPT/HCPCS: 36415; 80053; 83880; 85025; 99284

== ENCOUNTER 2018-03-31 11:16 | Emergency (ER) | payer MEDICAID, OTHER, SELFPAY ==
--- NOTE | 2018-03-31 13:21 | ULT ---
VENOUS DOPPLER ULTRASOUND OF THE LEF TLOWER EXTREMITY: History Edema of the left lower extremity. TECHNIQUE: Abreu scale ultrasound with color flow and spectral Doppler imaging of the deep venous system of the l eft lower extremity was performed. FINDINGS: There is good flow, compression, and augmentation of the left common femoral, femoral, deep femoral, popliteal, posterior tibial, and greater saphenous veins. Incidental note is made of enlarged lymph nodes in the left groin. IMPRESSION: No evidence of deep vein thrombosis in the left lower extremity. POS: [facility]
== END 2018-03-31 13:00 | disposition home or self-care (01) ==
LOC: ERS 11:16
DX: L03.116 Cellulitis of left lower limb (principal); M79.89 Other specified soft tissue disorders; F41.9 Anxiety disorder, unspecified; F32.9 Major depressive disorder, single episode, unspecified; F90.9 Attention-deficit hyperactivity disorder, unspecified type; F17.210 Nicotine dependence, cigarettes, uncomplicated; M79.604 Pain in right leg; M79.605 Pain in left leg

== ENCOUNTER 2018-04-05 00:30 | Emergency (ER) | payer OTHER | END 2018-04-05 01:40 | disposition home or self-care (01) | LOC: ERS 00:30 | DX: L25.9 Unspecified contact dermatitis, unspecified cause (principal); F32.9 Major depressive disorder, single episode, unspecified; F41.9 Anxiety disorder, unspecified; F90.9 Attention-deficit hyperactivity disorder, unspecified type; F17.210 Nicotine dependence, cigarettes, uncomplicated | CPT/HCPCS: 99283 ==

== ENCOUNTER 2018-04-07 02:48 | Emergency (ER) | payer OTHER ==
[2018-04-07] MEDS ORDERED: hydrOXYzine 25 MG TAB ONE (06:24)
== END 2018-04-07 07:41 | disposition home or self-care (01) ==
LOC: ERS 02:48
DX: L73.9 Follicular disorder, unspecified (principal); F32.9 Major depressive disorder, single episode, unspecified; F90.9 Attention-deficit hyperactivity disorder, unspecified type; F41.9 Anxiety disorder, unspecified; F17.210 Nicotine dependence, cigarettes, uncomplicated
CPT/HCPCS: 99283

== ENCOUNTER 2018-04-08 05:01 | Emergency (ER) | payer OTHER ==
[2018-04-08 05:55] LABS: #Eosinphils 0.4 thou/uL (0.0-0.7); #Lymphocytes 2.9 thou/uL (1.20-3.40); #Monocytes 0.5 thou/uL (0.11-0.59); #Neutrophils 2.3 thou/uL (1.40-6.50); %Basophils 0.7 % (0.0-1.0); %Eosinophils 6.3 % (0.0-10.0); %Lymphocytes 46.8 % (21.0-51.0); %Monocytes 8.8 % (0.0-10.0); %Neutrophils 37.4 % (42.0-75.0); Hemoglobin 11.7 g/dL (14.0-18.0); Mean Corpuscular HGB CONC 33.5 g/dL (32.0-36.0); Mean Corpuscular Hemoglobin 31.8 pg (27.0-31.0); Mean Corpuscular Volume 94.8 fl (80.0-94.0); Mean Platelet Volume 6.6 fL (7.4-10.4); Platelet Count 221 thou/uL (130-400); RBC Distribution Width 13.5 % (11.5-14.5); Red Blood Cell (RBC) Count 3.68 mill/uL (4.70-6.10); White Blood Cell (WBC) Count 6.1 thou/uL (4.8-10.8)
[2018-04-08 06:10] LABS: ALT (SGPT) 10 U/L (8-55); AST (SGOT) 27 U/L (5-34); Albumin 3.7 g/dL (3.5-5.0); Alkaline Phosphatase 56 U/L (40-150); Anion Gap 11 mmol/L (10-20); BUN (Urea Nitrogen) 8 mg/dL (8.9-20.6); Bilirubin, Total 0.3 mg/dL (0.2-1.2); Calc. Creatinine Clearance 0 mL/min (70-130); Calcium 8.9 mg/dL (7.8-10.44); Carbon Dioxide 24 mmol/L (22-29); Chloride 107 mmol/L (98-107); Estimated GFR-MDRD Greater than 90; Globulin 3.3 g/dL (2.4-3.5); Glucose 80 mg/dL (70-105); Potassium 4.2 mmol/L (3.5-5.1); Sodium 138 mmol/L (136-145)
[2018-04-08 06:11] LABS: CKMB 1.6 ng/mL (0-6.6); Troponin I Less than 0.010 ng/mL (< 0.028)
[2018-04-08] MEDS ORDERED: Acetaminophen 500 MG TAB ONE (06:18)
[2018-04-08] MEDS ORDERED: Ketorolac Tromethamine 60 MG/2 ML VIAL ONE (06:38)
[2018-04-08 06:52] LABS: Bilirubin Negative (Negative); Blood, Urine Negative (Negative); Clarity CLEAR (Clear); Glucose, Urine (Dipstick) Negative (Negative); Leukocyte Negative (Negative); Nitrite Negative (Negative); Protein, Urine (Dipstick) Negative (Neg-Trace); Specific Gravity, Urine 1.004 (1.002-1.036); Urobilinogen 0.2 mg/dL (0.2-1.0)
--- NOTE | 2018-04-08 08:36 | RAD ---
PORTABLE CHEST ONE VIEW: Date: 04-08-18 Time: 5:21 a.m. History: Chest pain. FINDINGS: Comparison is made with 03-29-18. The heart size is normal. The lungs are well expanded without focal areas of consolidation, pneumotho races or pleural effusions. IMPRESSION: No radiographic evidence of acute cardiopulmonary process. POS: [facility]
== END 2018-04-08 07:34 | disposition home or self-care (01) ==
LOC: ERS 05:01
DX: L73.9 Follicular disorder, unspecified (principal); F90.9 Attention-deficit hyperactivity disorder, unspecified type; F41.9 Anxiety disorder, unspecified; F17.210 Nicotine dependence, cigarettes, uncomplicated
CPT/HCPCS: 36415; 71045; 80053; 81003; 82553; 83880; 84484; 85025; 93005; 96372; J1885

== ENCOUNTER 2019-04-16 16:25 | Inpatient (IN) | payer MEDICAID, OTHER ==
[2019-04-16 18:49] LABS: #Lymphocytes 0.7 thou/uL (1.20-3.40); #Monocytes 0.2 thou/uL (0.11-0.59); #Neutrophils 12.5 thou/uL (1.40-6.50); %Basophils 0.2 % (0.0-1.0); %Eosinophils 0.3 % (0.0-10.0); %Lymphocytes 5.4 % (21.0-51.0); %Monocytes 1.7 % (0.0-10.0); %Neutrophils 92.4 % (42.0-75.0); Hemoglobin 12.6 g/dL (14.0-18.0); Mean Corpuscular HGB CONC 32.1 g/dL (32.0-36.0); Mean Corpuscular Hemoglobin 30.5 pg (27.0-31.0); Mean Corpuscular Volume 94.8 fL (78.0-98.0); Mean Platelet Volume 7.3 fL (7.4-10.4); Platelet Count 215 thou/uL (130-400); RBC Distribution Width 12.7 % (11.5-14.5); Red Blood Cell (RBC) Count 4.14 mill/uL (4.70-6.10); White Blood Cell (WBC) Count 13.5 thou/uL (4.8-10.8)
[2019-04-16 19:14] LABS: ALT (SGPT) 18 U/L (8-55); AST (SGOT) 35 U/L (5-34); Albumin 3.9 g/dL (3.5-5.0); Alkaline Phosphatase 57 U/L (40-150); Anion Gap 12 mmol/L (10-20); BUN (Urea Nitrogen) 18 mg/dL (8.9-20.6); Calc. Creatinine Clearance 0 mL/min (70-130); Calcium 9.5 mg/dL (7.8-10.44); Carbon Dioxide 27 mmol/L (22-29); Chloride 98 mmol/L (98-107); Estimated GFR-MDRD Greater than 90; Globulin 3.3 g/dL (2.4-3.5); Glucose 124 mg/dL (70-105); Potassium 4.2 mmol/L (3.5-5.1); Protein, Total 7.2 g/dL (6.0-8.3); Sodium 133 mmol/L (136-145)
[2019-04-16] MEDS ORDERED: Morphine 4 MG/ML VIAL ONE (21:37)
[2019-04-16] MEDS ORDERED: Piperacillin/Tazobactam 4.5 GM VIAL ONE (21:37)
[2019-04-16] MEDS ORDERED: Ondansetron PF 4 MG/2 ML Vial ONE (21:37)
[2019-04-16] MEDS ORDERED: Ketorolac Tromethamine 30 MG/ML VIAL ONE (21:37)
--- NOTE | 2019-04-16 22:03 | RAD ---
XR Chest 1 View Portable History: Fever Comparison: Radiograph April 08, 2018 Findings: Lungs are clear. No pneumothorax or effusion. Cardiac silhouette and mediastinal contours a re within normal limits Impression: No acute intrathoracic abnormality.
--- NOTE | 2019-04-16 22:28 | ULT ---
US Venous Doppler Lt Unilat History: Redness and swelling Comparison: Left lower extremity venous Doppler March Findings: Real-time grayscale, color, and spectral analysis of the left lower extremity venous system was performed. The common femoral, femoral, proximal portions greater saphenous and deep femoral veins as well as the popliteal and posterior tibial veins were interrogated. There are abnormally enlarged lymph nodes in the left superficial inguinal lymph node chain. Mild low er extremity edema. Normal flow, augmentation, and compression. Impression: 1. No deep venous thrombosis. 2. Abnormal superficial inguinal adenopathy. Clinical correlation and workup advised.
[2019-04-17 00:37] VITALS: BMI 23.1
[2019-04-17] MEDS ORDERED: Morphine 2 MG/ML SYRINGE SLOW IVP PRN (00:38)
[2019-04-17] MEDS ORDERED: Morphine 4 MG/ML VIAL SLOW IVP PRN (00:39)
[2019-04-17] MEDS ORDERED: Ondansetron ODT 4 MG TAB SL PRN (00:41)
[2019-04-17] MEDS ORDERED: Acetaminophen 325 MG TAB PO PRN (00:41)
[2019-04-17] MEDS ORDERED: HYDROcodone/Acetaminophen 5/325 mg Tablet PO PRN ×2 (00:41)
[2019-04-17] MEDS ORDERED: Ondansetron PF 4 MG/2 ML Vial IVP PRN (00:41)
[2019-04-17] MEDS: Sodium Chloride 0.9% 1,000 ML IV SCH ×2 (00:51→15:42)
[2019-04-17] MEDS: Clindamycin/D5W 900 MG in Premix Bag 1 BAG IVPB SCH ×2 (00:54→08:51)
[2019-04-17] MEDS: Piperacillin/Tazobactam 4.5 GM in Sodium Chloride 0.9% 100 ML IVPB SCH ×4 (04:24→20:55)
[2019-04-17 08:03] LABS: Bilirubin Negative (Negative); Blood, Urine Negative (Negative); Clarity CLEAR (Clear); Glucose, Urine (Dipstick) Negative (Negative); Leukocyte Negative (Negative); Nitrite Negative (Negative); Protein, Urine (Dipstick) 30 mg/dL (Neg-Trace); Specific Gravity, Urine 1.036 (1.002-1.036); pH, Urine 6.5 (5.0-9.0)
[2019-04-17 08:05] LABS: Bacteria/HPF None Seen HPF (None Seen); Hyaline Casts/LPF 0-3 HYALINE CAST LPF (0-3 Hyaline); Squamous Epithelial 0-3 HPF (0-3); WBC/HPF 0-3 HPF (0-3)
[2019-04-17 08:27] LABS: RBC/HPF 0-3 HPF (0-3); Renal Epithelial 0-3 HPF (0-3); Transitional Epithelial 0-3 HPF (0-3)
[2019-04-17] MEDS ORDERED: Vancomycin HCl 1 GM in Premix Bag 1 BAG IVPB SCH (09:00)
[2019-04-17] MEDS ORDERED: traMADol HCl 50 MG TAB PO PRN (12:40)
[2019-04-17] MEDS ORDERED: Ibuprofen 200 MG TAB PO PRN (12:40)
[2019-04-17] MEDS ORDERED: Acetaminophen 500 MG TAB PO PRN (12:40)
[2019-04-17] MEDS ORDERED: hydrALAZINE 20 MG/ML VIAL SLOW IVP PRN (12:40)
[2019-04-17] MEDS ORDERED: Ketorolac Tromethamine 30 MG/ML VIAL IVP PRN (12:53)
[2019-04-17] MEDS: Vancomycin HCl 1.25 GM in Sodium Chloride 0.9% 250 ML 250 ML IVPB SCH (17:53)
[2019-04-17] MEDS: Famotidine 20 MG TAB PO SCH (20:55)
[2019-04-17] MEDS: Citalopram 20 MG TAB PO SCH (20:55)
[2019-04-18] MEDS: Piperacillin/Tazobactam 4.5 GM in Sodium Chloride 0.9% 100 ML IVPB SCH ×4 (01:32→20:59)
[2019-04-18] MEDS: Vancomycin HCl 1.25 GM in Sodium Chloride 0.9% 250 ML 250 ML IVPB SCH ×3 (02:51→17:08)
[2019-04-18 06:30] LABS: Band 16 % (5-11); Eosinophils 2 % (0-10); Hemoglobin 10.6 g/dL (14.0-18.0); Lymphocytes 17 % (21-51); MDiff Complete? YES; Mean Corpuscular HGB CONC 32.1 g/dL (32.0-36.0); Mean Corpuscular Hemoglobin 30.6 pg (27.0-31.0); Mean Corpuscular Volume 95.5 fL (78.0-98.0); Mean Platelet Volume 7.7 fL (7.4-10.4); Monocytes 8 % (0-10); Neutrophil 57 % (42-75); Platelet Count 180 thou/uL (130-400); Red Blood Cell (RBC) Count 3.45 mill/uL (4.70-6.10); White Blood Cell (WBC) Count 6.7 thou/uL (4.8-10.8)
[2019-04-18 06:37] LABS: Anion Gap 9 mmol/L (10-20); BUN (Urea Nitrogen) 5 mg/dL (8.9-20.6); Calc. Creatinine Clearance 152 mL/min (70-130); Calcium 8.6 mg/dL (7.8-10.44); Carbon Dioxide 26 mmol/L (22-29); Chloride 107 mmol/L (98-107); Estimated GFR-MDRD Greater than 90; Glucose 100 mg/dL (70-105); Potassium 3.4 mmol/L (3.5-5.1); Sodium 139 mmol/L (136-145)
[2019-04-18] MEDS: Enoxaparin Sodium 40 MG/0.4 ML SYRINGE SC SCH ×2 (09:48)
[2019-04-18] MEDS: Famotidine 20 MG TAB PO SCH ×2 (09:48→20:59)
[2019-04-18 11:14] LABS: Vancomycin, Trough 11.8 ug/mL
--- NOTE | 2019-04-18 13:09 | PDOC.PN ---
- Subjective Encounter Start Date: 04/18/19 Encounter Start Time: 13:05 Subjective: f/u for LLE cellulitis on current Vanc/Zosyn. States some pain in LLE -: but overall feeling better. - Objective Resuscitation Status - Order Detail: 04/17/19 12:28 Resuscitation Status Routine Resuscitation Status: FULL: Full Resuscitation MAR Reviewed: Yes Vital Signs & Weight: Vital Signs (12 hours) Temp Pulse Resp BP Pulse Ox 04/18/19 11:00 99.0 F 73 18 122/76 96 04/18/19 07:41 98.8 F 79 18 114/74 96 04/18/19 04:00 98.9 F 78 18 117/79 97 Weight Weight 185 lb 4.8 oz Result Diagrams: 04/18/19 05:42 04/18/19 05:42 Additional Labs: Microbiology 04/16/19 21:43 Venous blood - Left Arm Blood Culture - Preliminary NO GROWTH AT 48 HOURS 04/16/19 21:28 Venous blood - Right Arm Blood Culture - Preliminary NO GROWTH AT 48 HOURS Laboratory Tests 04/16/19 04/16/19 04/18/19 18:42 18:42 05:42 WBC 13.5 H Neutrophils % 92.4 H Neutrophils % (Manual) 57 Band Neuts % (Manual) 16 H Potassium 4.2 Phys Exam - Physical Examination Constitutional: NAD HEENT: PERRLA, sclera anicteric, oral pharynx no lesions Neck: no nodes, no JVD, supple, full ROM Respiratory: no wheezing, no rales, no rhonchi, clear to auscultation bilateral S1, S2 Cardiovascular: RRR, no significant murmur, no rub, gallop Gastrointestinal: soft, non-tender, no distention, positive bowel sounds LLE with erythema noted in groin but decreased Musculoskeletal: pulses present, edema present Neurological: normal sensation, moves all 4 limbs Psychiatric: A&O x 3 Skin: normal turgor, cap refill <2 seconds Dx/Plan (1) Cellulitis of left leg Code(s): L03.116 - CELLULITIS OF LEFT LOWER LIMB Status: Suspected Comment: Recurrent, continue Vancomycin/Zosyn, elevate LLE while seated (2) Acute febrile illness Code(s): R50.9 - FEVER, UNSPECIFIED Status: Acute Comment: Secondary to #1, improving (3) Chronic venous insufficiency Status: Chronic Comment: Likely exacerbated from fpc tobacco abuse, recommend ASA daily (4) Tobacco abuse Code(s): Z72.0 - TOBACCO USE Status: Chronic Comment: Smoking cessation resources - Plan continue antibiotics, out of bed/ambulate Stable currently -: Continue Vanc/Zosyn -: Tobacco cessation resources -: Elevate LLE while seated -: FORTUNATO mccain for outpt mgmt of edema * AM lab: H/H * Likely home in 24h
--- NOTE | 2019-04-18 15:53 | HP ---
PRIMARY CARE PROVIDER: [facility]. CHIEF COMPLAINT: Left lower leg redness. HISTORY OF PRESENT ILLNESS: This is a 48-year-old male, who presented to [facility] Emergency Department complaining of left lower extremity swelling, redness, and general malaise over the last 2 to 3 days. The patient noted swelling in his left groin region extending down to his knee and ankle region, feeling febrile. The patient states his fever was over 102 degrees Fahrenheit, but did not take any specific home remedies. The patient admits to history of recurrent cellulitis of the left lower extremity, undergoing a lymph node restriction in the left groin approximately 2 years prior to this evaluation in the [facility]. The patient has recurrent symptoms approximately one time per year. Last admitted to [facility] in January of 2018 for similar presentation. The patient denied any direct trauma injury, insect bites, skin breakdown, recent surgical intervention, or foot ulcers. The patient denies any history of diabetes mellitus or antibiotic exposure. In the emergency room, the patient underwent general evaluation including vascular ultrasound to the left lower extremity ruling out DVT. The patient received IV vancomycin, Zosyn, and clindamycin in the Emergency Department after diagnosis of cellulitis. The patient was transferred to the medical floor for further evaluation. PAST MEDICAL HISTORY: 1. Recurrent cellulitis of the left lower extremity. 2. ADHD. 3. Bipolar disorder. 4. Chronic venous insufficiency. 5. Tobacco abuse. PAST SURGICAL HISTORY: Status post lymph node resection of the left inguinal region. CURRENT MEDICATIONS: Celexa 20 mg p.o. at bedtime. ALLERGIES: NO KNOWN DRUG ALLERGIES. FAMILY HISTORY: No inheritable disease per the patient report. SOCIAL HISTORY: The patient resides in [place], [place]. 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 Smokes up to half a pack of cigarettes daily. Remote history of methamphetamine and cocaine abuse. Recently incarcerated. REVIEW OF SYSTEMS: CONSTITUTIONAL: Negative for weight loss or gain, ability to conduct usual activities. SKIN: Negative for rash, itching. EYES: Negative for double vision, pain. ENT/MOUTH: Negative for nose bleeding, neck stiffness, pain, tenderness. CARDIOVASCULAR: Negative for palpitations, dyspnea on exertion, orthopnea. RESPIRATORY: Negative for shortness of breath, wheezing, cough, hemoptysis, fever or night sweats. GASTROINTESTINAL: Negative for poor appetite, abdominal pain, heartburn, nausea, vomiting, constipation, or diarrhea. GENITOURINARY: Negative for urgency, frequency, dysuria, nocturia. MUSCULOSKELETAL: Negative for pain, swelling. NEUROLOGIC/PSYCHIATRIC: Negative for anxiety, depression. ALLERGY/IMMUNOLOGIC: Negative for skin rash, bleeding tendency. Otherwise, negative except as stated per HPI. PHYSICAL EXAMINATION: VITAL SIGNS: On admission, blood pressure 104/69, pulse 80, respiratory rate 18, temperature 99.4 degrees Fahrenheit, and O2 saturation 94% on room air. GENERAL APPEARANCE: This is a 48-year-old male, alert and oriented x3, pleasant, responsive, in no acute distress. HEENT: Pupils are equal, round, and reactive to light and accommodation. Extraocular muscles are intact. No scleral icterus. No conjunctival injection. Nares patent. OP is clear. Teeth in poor repair. NECK: Supple. No cervical adenopathy. No thyromegaly. No carotid bruits. No JVD appreciated. Cervical spine, full active and passive range of motion. No meningeal signs noted. CHEST: Lungs are clear to auscultation bilaterally. CARDIOVASCULAR: S1 and S2 without noted murmur, rub, or gallop. ABDOMEN: Rounded, soft, nontender, and nondistended. Bowel sounds are positive in all 4 quadrants. There is no hepatosplenomegaly. No abdominal bruits. No rebound or guarding appreciated. EXTREMITIES: Left lower extremity with edema and erythema to the left groin region with second patch of erythema in the medial knee region. Large area of erythema with indistinct margins of the left lower extremity on to the ankle region. Pulses are diminished, but palpable distally at the dorsalis pedis and posterior tibial arteries bilaterally. Capillary refill less than 2 seconds. NEUROLOGIC: Cranial nerves II through XII are grossly intact. No focal or lateralizing signs appreciated. PERTINENT LABORATORY AND X-RAY FINDINGS: Sodium 133, potassium 4.2, chloride 98, CO2 of 27, BUN 18, creatinine 0.83, glucose 124, lactic acid level 1.6, calcium 9.5, AST 35, ALT of 18, alkaline phosphatase 57, and albumin 3.9. CBC showed a white blood cell count of 13.5, hemoglobin 12.6, hematocrit 39, and platelet count 215 with 92% neutrophils. Urinalysis positive for protein, trace ketones. Blood cultures x2 dated 04/16/2019 showed no growth to date. Portable chest x-ray dated 04/16/2019 showed no acute cardiopulmonary process. Left lower extremity venous Doppler study showed no evidence for DVT. ASSESSMENT AND PLAN: 1. Left lower extremity cellulitis. The patient will be admitted to the medical floor. We will continue vancomycin 1.25 g IV q.12 hours with additional Zosyn 4.5 g IV q.6 hours. Serial monitoring of clinical progress. Elevate left lower extremity while in bed. Pain control as clinically indicated. 2. Neutrophilic leukocytosis secondary to left lower extremity cellulitis. Continue treatment as outlined in left lower extremity cellulitis and repeat CBC in the a.m. 3. Tobacco abuse. We will offer smoking cessation resources prior to discharge. 4. Bipolar disorder. Continue Celexa 20 mg daily. 5. Prophylaxis. Hold SCDs due to left lower extremity cellulitis. Lovenox 40 mg subcutaneously daily. Pepcid 20 mg p.o. b.i.d. 6. Code status is full. Surrogate medical decision maker is the patient's mother. Job ID: [id number]
[2019-04-18] MEDS: Citalopram 20 MG TAB PO SCH (20:59)
[2019-04-19] MEDS: Piperacillin/Tazobactam 4.5 GM in Sodium Chloride 0.9% 100 ML IVPB SCH ×3 (01:30→14:19)
[2019-04-19] MEDS: Vancomycin HCl 1.25 GM in Sodium Chloride 0.9% 250 ML 250 ML IVPB SCH ×3 (03:10→18:28)
[2019-04-19 04:53] VITALS: BP 129/88; TEMP 98.4
[2019-04-19 07:16] LABS: Hemoglobin 10.7 g/dL (14.0-18.0); Platelet Count 201 thou/uL (130-400)
[2019-04-19] MEDS: Enoxaparin Sodium 40 MG/0.4 ML SYRINGE SC SCH (08:34)
[2019-04-19] MEDS: Famotidine 20 MG TAB PO SCH (08:35)
--- NOTE | 2019-04-19 15:00 | PQF ---
CLINICAL DOCUMENTATION IMPROVEMENT CLARIFICATION FORM: ICD-10 Updated PLEASE DO AN ADDENDUM TO THE PROGRESS NOTE WITH ANY DOCUMENTATION UPDATES OR ADDITIONS AND CARRY THROUGH TO DC SUMMARY. THANK YOU. DATE: 04/19/19 ATTN: DR. RODGERS Please exercise your independent, professional judgment in responding to the clarification form. Clinical indicators are provided on the bottom of this form for your review Please check appropriate box(s) to clarify if the following diagnosis has been ruled in or ruled out: "SEPSIS" [ ] Ruled in diagnosis [ ] Continue to treat [ ] Resolved [ x ] Ruled out diagnosis [ ] Cannot rule out diagnosis [ ] Other diagnosis [ ] Unable to determine In addition, please specify: Present on Admission (POA): [ ] Yes [ x ] No [ ] Unable to determine For continuity of documentation, please document condition throughout progress notes and discharge summary. Thank You. CLINICAL INDICATORS - SIGNS / SYMPTOMS / LABS ER NOTE: "MEETS SEPSIS CRITERIA" WBC 13.5 TEMP 102.1 PULSE 106 RISKS: CELLULITIS TREATMENT: IV CLINDAMYCIN (ER) IV VANCOMYCIN (ER-PRESENT) IV ZOSYN (ER-PRESENT) IV FLUIDS (ER) BLOOD CULTURES (This form is maintained as a part of the permanent medical record) 2014 [employer]. All Rights Reserved MTDD
[2019-04-19 18:02] LABS: Vancomycin, Trough 15.8 ug/mL
--- NOTE | 2019-04-19 21:11 | DIS ---
DATE OF ADMISSION: 04/16/2019 DATE OF DISCHARGE: 04/19/2019 DISCHARGE DIAGNOSES: 1. Cellulitis of the left lower extremity, improved. 2. Acute febrile illness secondary to #1, improved. 3. Chronic venous insufficiency. 4. Tobacco abuse, ongoing. CONSULTATIONS: None. PERTINENT LABORATORY AND X-RAY FINDINGS: Potassium ranged between 3.4 to 4.2. CBC showed a white blood cell count ranged between 6.7 to 13.5, hemoglobin ranged between 10.6 to 12.6. Blood cultures x2 dated 04/16/2019, showed no growth at 48 hours. Portable chest x-ray dated 04/16/2019, showed no acute cardiopulmonary process. HOSPITAL COURSE: The patient was initially admitted after presenting with left lower extremity redness and recurrent cellulitis in the context of chronic venous insufficiency. The patient was placed on vancomycin and Zosyn and monitored for clinical response. The patient had overall decreased erythema in the left lower extremity as well as edema and remained afebrile over the last 24 hours. The patient is recommended for FORTUNATO hose compression stocking to the left lower extremity on an ongoing basis after discharge. I have examined the patient at the time of discharge and discussed followup instructions. The patient verbalized understanding and agreement ready for discharge on 04/19/2019. DISCHARGE MEDICATIONS: 1. Augmentin 875 mg 1 tablet p.o. b.i.d. x10 days. 2. Celexa 20 mg p.o. at bedtime. FOLLOWUP: The patient may follow up with his primary care provider at [facility] within 7 days of discharge. CONDITION ON DISCHARGE: Stable. ACTIVITY: Ad-juan josé. DIET: Regular. CODE STATUS: Full. DISPOSITION: Home on 04/19/2019. Job ID: [id number]
== END 2019-04-19 18:48 | disposition home or self-care (01) | DRG 603 ==
LOC: ERS 16:25 → T4-B 22:35
PROVIDERS: ADMIT Hospitalist; ATTEND Hospitalist
DX: L03.116 Cellulitis of left lower limb (principal); F90.9 Attention-deficit hyperactivity disorder, unspecified type; F31.9 Bipolar disorder, unspecified; I87.2 Venous insufficiency (chronic) (peripheral); F17.210 Nicotine dependence, cigarettes, uncomplicated; Z79.899 Other long term (current) drug therapy
CPT/HCPCS: 36415; 36416; 71045; 80048; 80053; 80202; 81003; 81015; 83605; 85007; 85014; 85018; 85025; 85027; 85049; 87040; 94760; 96365; 96367; 96375; J1650; J1885; J2270; J2405; J2543; J3370; J3490; J7050

== ENCOUNTER 2019-05-04 19:38 | Emergency (ER) | payer MEDICAID | END 2019-05-04 20:19 | disposition home or self-care (01) | LOC: ERS 19:38 | DX: I73.9 Peripheral vascular disease, unspecified (principal); F41.9 Anxiety disorder, unspecified; F32.9 Major depressive disorder, single episode, unspecified; F90.9 Attention-deficit hyperactivity disorder, unspecified type; F17.210 Nicotine dependence, cigarettes, uncomplicated; Z79.899 Other long term (current) drug therapy | CPT/HCPCS: 99281 ==

== ENCOUNTER 2019-05-09 05:45 | Emergency (ER) | payer MEDICAID | END 2019-05-09 06:42 | disposition home or self-care (01) | LOC: ERS 05:45 | DX: L50.9 Urticaria, unspecified (principal); I73.9 Peripheral vascular disease, unspecified; F41.9 Anxiety disorder, unspecified; F32.9 Major depressive disorder, single episode, unspecified; F90.9 Attention-deficit hyperactivity disorder, unspecified type; F17.210 Nicotine dependence, cigarettes, uncomplicated; Z79.899 Other long term (current) drug therapy | CPT/HCPCS: 99282 ==

== ENCOUNTER 2019-05-16 01:08 | Emergency (ER) | payer MEDICAID ==
[2019-05-16] MEDS ORDERED: Ondansetron ODT 4 MG TAB ONE (01:17)
[2019-05-16] MEDS ORDERED: Dicyclomine 20 MG TAB ONE (01:17)
== END 2019-05-16 01:45 | disposition home or self-care (01) ==
LOC: ERS 01:08
DX: R11.2 Nausea with vomiting, unspecified (principal); R19.7 Diarrhea, unspecified; S80.811A Abrasion, right lower leg, initial encounter; F41.9 Anxiety disorder, unspecified; F32.9 Major depressive disorder, single episode, unspecified; F90.9 Attention-deficit hyperactivity disorder, unspecified type; F17.210 Nicotine dependence, cigarettes, uncomplicated; Z79.899 Other long term (current) drug therapy; X58.XXXA Exposure to other specified factors, initial encounter
CPT/HCPCS: 99283; Q0162

== ENCOUNTER 2019-06-04 10:16 | Emergency (ER) | payer MEDICAID ==
--- NOTE | 2019-06-04 12:22 | ULT ---
LEFT LOWER EXTREMITY VENOUS ULTRASOUND: Date: 06/04/19 HISTORY: Left lower extremity pain. TECHNIQUE: Multiplanar Abreu scale and color Doppler images were obtained in a left lower extremity venous ultra sound. Spectral analysis of the Doppler waveforms were performed. FINDINGS: The left common femoral vein, profunda femoral vein, superficial femoral vein, and popliteal vein are normal in appearance without visible thrombus. These vessels demonstrate normal compression, flow, a nd augmentation. The posterior tibial vein and greater saphenous vein are also patent. There are enlarged lymph nodes in the right inguinal region measuring up to 4.3 cm in length. IMPRESSION: 1. No evidence of deep venous thrombosis. 2. Left inguinal adenopathy. POS: [facility]
== END 2019-06-04 13:03 | disposition home or self-care (01) ==
LOC: ERS 10:16
DX: L03.116 Cellulitis of left lower limb (principal); F41.9 Anxiety disorder, unspecified; F32.9 Major depressive disorder, single episode, unspecified; F90.9 Attention-deficit hyperactivity disorder, unspecified type; F17.210 Nicotine dependence, cigarettes, uncomplicated; Z79.899 Other long term (current) drug therapy

== ENCOUNTER 2019-06-13 03:56 | Emergency (ER) | payer MEDICAID, OTHER ==
[2019-06-13 04:32] LABS: #Basophils 0.1 thou/uL (0.0-0.2); #Eosinphils 0.2 thou/uL (0.0-0.7); #Monocytes 0.5 thou/uL (0.11-0.59); #Neutrophils 3.1 thou/uL (1.40-6.50); %Basophils 1.4 % (0.0-1.0); %Eosinophils 2.2 % (0.0-10.0); %Lymphocytes 43.5 % (21.0-51.0); %Monocytes 7.8 % (0.0-10.0); %Neutrophils 45.1 % (42.0-75.0); Hemoglobin 11.7 g/dL (14.0-18.0); Mean Corpuscular HGB CONC 33.1 g/dL (32.0-36.0); Mean Corpuscular Hemoglobin 30.5 pg (27.0-31.0); Mean Platelet Volume 6.8 fL (7.4-10.4); Platelet Count 313 thou/uL (130-400); RBC Distribution Width 14.1 % (11.5-14.5); Red Blood Cell (RBC) Count 3.84 mill/uL (4.70-6.10); White Blood Cell (WBC) Count 6.8 thou/uL (4.8-10.8)
[2019-06-13 04:49] LABS: Anion Gap 12 mmol/L (10-20); BUN (Urea Nitrogen) 8 mg/dL (8.9-20.6); Calc. Creatinine Clearance 0 mL/min (70-130); Carbon Dioxide 23 mmol/L (22-29); Chloride 103 mmol/L (98-107); Estimated GFR-MDRD Greater than 90; Glucose 100 mg/dL (70-105); Potassium 3.9 mmol/L (3.5-5.1); Sodium 134 mmol/L (136-145)
== END 2019-06-13 05:20 | disposition home or self-care (01) ==
LOC: ERS 03:56
DX: I83.018 Varicose veins of right lower extremity with ulcer other part of lower leg (principal); L97.819 Non-pressure chronic ulcer of other part of right lower leg with unspecified severity; F41.9 Anxiety disorder, unspecified; F32.9 Major depressive disorder, single episode, unspecified; F17.210 Nicotine dependence, cigarettes, uncomplicated; F90.9 Attention-deficit hyperactivity disorder, unspecified type; Z79.899 Other long term (current) drug therapy
CPT/HCPCS: 80048; 85025; 85652; 86140; 99283

== ENCOUNTER 2019-07-20 10:59 | Emergency (ER) | payer OTHER ==
[2019-07-20] MEDS ORDERED: Ibuprofen 800 MG TAB ONE (11:28)
== END 2019-07-20 12:05 | disposition home or self-care (01) ==
LOC: ERS 10:59
DX: M79.10 Myalgia, unspecified site (principal); R50.9 Fever, unspecified; F41.9 Anxiety disorder, unspecified; F32.9 Major depressive disorder, single episode, unspecified; F90.9 Attention-deficit hyperactivity disorder, unspecified type; F17.210 Nicotine dependence, cigarettes, uncomplicated; I73.9 Peripheral vascular disease, unspecified
CPT/HCPCS: 87804; 99283

== ENCOUNTER 2019-07-21 14:47 | Inpatient (IN) | payer OTHER ==
[2019-07-21] MEDS ORDERED: Clindamycin/D5W 900 mg/50 ml Premix Bag ONE (15:33)
[2019-07-21 15:37] LABS: Hemoglobin 13.2 g/dL (14.0-18.0); Mean Corpuscular HGB CONC 33.6 g/dL (32.0-36.0); Mean Corpuscular Hemoglobin 30.6 pg (27.0-31.0); Mean Corpuscular Volume 91.2 fL (78.0-98.0); Mean Platelet Volume 8.4 fL (7.4-10.4); Platelet Count 168 thou/uL (130-400); RBC Distribution Width 14.1 % (11.5-14.5); Red Blood Cell (RBC) Count 4.31 mill/uL (4.70-6.10); White Blood Cell (WBC) Count 17.4 thou/uL (4.8-10.8)
[2019-07-21 15:57] LABS: ALT (SGPT) 8 U/L (8-55); AST (SGOT) 15 U/L (5-34); Albumin 3.6 g/dL (3.5-5.0); Alkaline Phosphatase 45 U/L (40-110); Anion Gap 12 mmol/L (10-20); BUN (Urea Nitrogen) 14 mg/dL (8.9-20.6); Bilirubin, Total 1.2 mg/dL (0.2-1.2); Calc. Creatinine Clearance 0 mL/min (70-130); Calcium 8.8 mg/dL (7.8-10.44); Carbon Dioxide 24 mmol/L (22-29); Chloride 101 mmol/L (98-107); Estimated GFR-MDRD 73; Globulin 3.3 g/dL (2.4-3.5); Glucose 91 mg/dL (70-105); Potassium 3.5 mmol/L (3.5-5.1); Protein, Total 6.9 g/dL (6.0-8.3); Sodium 133 mmol/L (136-145)
[2019-07-21 15:59] LABS: Band 20 % (5-11); Lymphocytes 5 % (21-51); MDiff Complete? YES; Metamyelocyte 2 % (0-0); Monocytes 4 % (0-10); Neutrophil 68 % (42-75); Platelet Morphology Comment Appears Adequate; RBC Morphology Normal; Reactive Lymphocytes 1 % (0-10)
[2019-07-21] MEDS ORDERED: Sodium Chloride 0.9% 1,000 ML IV SCH (20:30)
[2019-07-21 20:59] VITALS: BMI 22.2
[2019-07-21] MEDS ORDERED: Ondansetron ODT 4 MG TAB PO PRN (21:00)
[2019-07-21] MEDS ORDERED: Ondansetron PF 4 MG/2 ML Vial IVP PRN (21:00)
[2019-07-21] MEDS ORDERED: Vancomycin HCl 1 GM in Premix Bag 1 BAG IVPB SCH (21:30)
[2019-07-21] MEDS: Sodium Chloride 0.9% 1,000 ML IV SCH (22:09)
[2019-07-21] MEDS: Famotidine/PF 20 mg/2ml Vial SLOW IVP SCH (22:09)
[2019-07-21] MEDS ORDERED: Clindamycin/D5W 900 MG in Premix Bag 1 BAG IVPB SCH (23:00)
[2019-07-21] MEDS: Acetaminophen 500 MG TAB PO PRN (23:08)
[2019-07-21 23:43] LABS: Amphetamine Not Detected (NotDetected); Barbiturates Screen Not Detected (NotDetected); Benzodiazepine Screen Not Detected (NotDetected); Cocaine Metabolite Screen Not Detected (NotDetected); Medtox Control Line Valid? VALID (VALID); Medtox Reader # READER 4; Methadone Not Detected (NotDetected); Methamphetamine Not Detected (NotDetected); Opiate Screen Detected (NotDetected); Oxycodone Screen Not Detected (NotDetected); Phencyclidine (PCP) Not Detected (NotDetected); THC/Cannabinoid Screen Not Detected (NotDetected); Tricyclic Screen Not Detected (NotDetected)
[2019-07-22 06:22] LABS: #Eosinphils 0.1 thou/uL (0.0-0.7); #Lymphocytes 1.8 thou/uL (1.20-3.40); #Monocytes 0.8 thou/uL (0.11-0.59); #Neutrophils 8.5 thou/uL (1.40-6.50); %Basophils 0.3 % (0.0-1.0); %Eosinophils 1.1 % (0.0-10.0); %Lymphocytes 15.8 % (21.0-51.0); %Monocytes 6.9 % (0.0-10.0); %Neutrophils 75.9 % (42.0-75.0); Hemoglobin 11.7 g/dL (14.0-18.0); Mean Corpuscular HGB CONC 33.9 g/dL (32.0-36.0); Mean Corpuscular Hemoglobin 30.7 pg (27.0-31.0); Mean Corpuscular Volume 90.7 fL (78.0-98.0); Mean Platelet Volume 9.1 fL (7.4-10.4); Platelet Count 125 thou/uL (130-400); RBC Distribution Width 14.1 % (11.5-14.5); Red Blood Cell (RBC) Count 3.82 mill/uL (4.70-6.10); White Blood Cell (WBC) Count 11.2 thou/uL (4.8-10.8)
[2019-07-22 06:39] LABS: Anion Gap 9 mmol/L (10-20); BUN (Urea Nitrogen) 9 mg/dL (8.9-20.6); Calc. Creatinine Clearance 134 mL/min (70-130); Calcium 8.6 mg/dL (7.8-10.44); Carbon Dioxide 23 mmol/L (22-29); Chloride 106 mmol/L (98-107); Estimated GFR-MDRD Greater than 90; Glucose 108 mg/dL (70-105); Potassium 3.6 mmol/L (3.5-5.1); Sodium 134 mmol/L (136-145)
--- NOTE | 2019-07-22 07:21 | HP ---
PRIMARY CARE PHYSICIAN: None. CHIEF COMPLAINT: Left leg swelling and redness. HISTORY OF PRESENT ILLNESS: Mr. Pinon is a 49-year-old gentleman who presents with complaints of left lower extremity swelling, pain and redness since this morning. He came to the ER yesterday with a temperature of 102, and states he was examined and underwent laboratory studies which he was told were unremarkable and sent home with no diagnosis or source of infection found. The patient was told that he likely had and was therefore sent home. The patient did not have any laboratory studies done yesterday. Labs done today showed white count of 17.4. Lactic acid is normal at 1.1. Laboratory studies are otherwise unremarkable. The patient was initiated on IV antibiotics with clindamycin in the emergency department. The patient states he felt nauseated, but denies having any vomiting. No abdominal pain or cramping. No headaches or dizziness. Denies having any chest pain, palpitations or shortness of breath. States he does have general malaise, and though he has pain involving the left lower extremity, denies having any numbness, tingling or altered sensation. The pain is tolerable. Reports having loose stools this morning up to 3 times, but states his appetite has been poor and feels this is the reason. Has not had any further diarrhea since being in the hospital. Denies having any recent course of antibiotics. All other review of systems are negative. PAST MEDICAL HISTORY: 1. History of left lower extremity cellulitis infections in the past. 2. Chronic back pain. 3. Cleft palate. 4. Hiatal hernia. 5. Peripheral vascular disease. 6. Anxiety. 7. Depression. 8. ADHD. PAST SURGICAL HISTORY: 1. Right lower leg status post failed hyperbaric chamber therapy. 2. Left inguinal lymph node surgery. 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 He currently denies any illicit drug use. He does report smoking one pack per day. Reports occasional alcohol consumption. ALLERGIES: NO KNOWN DRUG ALLERGIES. CURRENT MEDICATIONS: 1. Celexa. 2. Seroquel. PHYSICAL EXAMINATION: GENERAL: The patient appears well developed, well nourished, is in no acute distress. VITAL SIGNS: Temperature . HEENT: Normocephalic and atraumatic. Pupils are equal, round, and reactive to light. No scleral icterus. Oropharynx is clear. NECK: Supple. No lymphadenopathy. LUNGS: Clear to auscultation bilaterally without any wheezes, rales, or rhonchi. CARDIAC: Regular rate and rhythm without audible murmurs, rubs or gallops. ABDOMEN: Soft, nontender, and nondistended. Normoactive bowel sounds present. EXTREMITIES: Left lower extremity is notable for erythema and swelling involving the foot extending up to just below the left knee. The patient with normal sensation and range of movement in his toes and ankle. Denies having any severe pain. No significant tenderness. Separate area of erythema and warmth involving the left inguinal region surrounding site of previous inguinal lymph node removal. No fluctuation or mass present. It is very tender to touch, but no obvious tracking extending from lower part of the leg. No area of drainage. NEUROLOGIC: Alert and oriented x3. SKIN: Erythema as noted above, otherwise unremarkable. INVESTIGATIONS: As mentioned above in HPI. IMPRESSION AND PLAN: Mr. Pinon is a 49-year-old gentleman, previous drug user, who denies any drug use at present, including IV drug use, presenting with left lower extremity erythema and redness, who has been initiated on antibiotics for left leg cellulitis. He has an area of erythema and redness involving incision from previous inguinal lymph node removal. We will draw a border to ensure this area is improving rather than worsening. He has been started on antibiotics with IV clindamycin. Following discussion with Dr. Cruz, he has advised giving one dose of vancomycin for now. Continuation of vancomycin to be determined by Day Team. The patient is doing well at present. He is hemodynamically stable and without complaints. Wound Care will be consulted as he does have a chronic wound involving the right lower leg. The patient is ambulatory. We will consult walking program. We will continue IV fluids with normal saline at 75 mL/h. Laboratory studies to be done in the morning. GI prophylaxis with famotidine. We will place orders for stool cultures including C difficile in the event he develops diarrhea again, though likelihood of C difficile infection is low. It appears his diarrhea has been mild. Pain is currently under control. Code status is full. His surrogate decision maker is his mother, Janessa Hamilton. Given history of drug use, I will obtain a urine drug screen. We will reconcile home medications once verified. The patient's case was discussed with Dr. Cruz, who agrees upon the care as described above. Job ID: [id number]
[2019-07-22] MEDS: Famotidine/PF 20 mg/2ml Vial SLOW IVP SCH ×2 (08:32→20:34)
[2019-07-22] MEDS: Citalopram 20 MG TAB PO SCH (08:32)
[2019-07-22] MEDS: Acetaminophen 500 MG TAB PO PRN ×2 (09:23→20:33)
[2019-07-22] MEDS: Sodium Chloride 0.9% 1,000 ML IV SCH (09:23)
--- NOTE | 2019-07-22 11:35 | PDOC.HOSPP ---
- Subjective Encounter Date: 07/22/19 Encounter Time: 11:33 Subjective: complaing of delay in having shower - Objective Vital Signs & Weight: Vital Signs (12 hours) Temp Pulse Resp BP BP Pulse Ox 07/22/19 08:00 99.4 F 75 26 H 100/64 99 07/22/19 04:00 97.9 F 90 20 103/66 98 07/22/19 00:41 100.1 F H 07/22/19 00:00 102.1 F H 98 20 96/55 L 99 Weight Weight 178 lb 0.02 oz I&O: 07/21/19 07/22/19 07/23/19 06:59 06:59 06:59 Intake Total 1400 Output Total 800 Balance 600 Result Diagrams: 07/22/19 05:32 07/22/19 05:32 Hospitalist ROS - Medication Medications: Active Medications Generic Name Dose Route Start Last Admin Trade Name Freq PRN Reason Stop Dose Admin Acetaminophen 1,000 mg 07/21/19 23:06 07/22/19 09:23 Tylenol PO 1,000 mg Q6H PRN Administration Headache/Fever or Pain Citalopram Hydrobromide 20 mg 07/22/19 09:00 07/22/19 08:32 Celexa PO 20 mg DAILY JULES Administration Famotidine 20 mg 07/21/19 21:00 07/22/19 08:32 Pepcid SLOW IVP 20 mg Q12HR JULES Administration Sodium Chloride 1,000 mls @ 75 mls/hr 07/21/19 21:00 07/22/19 09:23 Normal Saline 0.9% IV 1,000 mls .[id number] JULES Administration - Exam Neck: no JVD Heart: RRR Respiratory: CTAB Gastrointestinal: soft, normal bowel sounds Extremities - other findings: erythema, warth from ankle to knee on left leg Hosp A/P (1) Cellulitis Code(s): L03.90 - CELLULITIS, UNSPECIFIED Status: Acute Qualifiers: Site of cellulitis: extremity Site of cellulitis of extremity: lower extremity Laterality: left Qualified Code(s): L03.116 - Cellulitis of left lower limb (2) Bipolar disorder Code(s): F31.9 - BIPOLAR DISORDER, UNSPECIFIED Status: Chronic Qualifiers: Active/Remission status: remission status unspecified Qualified Code(s): F31.9 - Bipolar disorder, unspecified (3) Chronic venous insufficiency Status: Chronic (4) Polysubstance abuse Code(s): F19.10 - OTHER PSYCHOACTIVE SUBSTANCE ABUSE, UNCOMPLICATED Status: Chronic - Plan rocephin 2 gmms ivpb q 12h await C&S results cont home meds
[2019-07-22] MEDS: cefTRIAXone\\ROCEPHIN 2 GM in Sodium Chloride 0.9% 100 ML IVPB SCH (12:29)
[2019-07-23] MEDS: Sodium Chloride 0.9% 1,000 ML IV SCH ×2 (00:20→12:12)
[2019-07-23] MEDS: Famotidine/PF 20 mg/2ml Vial SLOW IVP SCH ×2 (08:08→20:22)
[2019-07-23] MEDS: Citalopram 20 MG TAB PO SCH (08:08)
[2019-07-23] MEDS: cefTRIAXone\\ROCEPHIN 2 GM in Sodium Chloride 0.9% 100 ML IVPB SCH (12:02)
--- NOTE | 2019-07-23 13:36 | PQF ---
IRINA RUFF,CRISTINA DEL ANGEL, [id number] CLINICAL DOCUMENTATION IMPROVEMENT CLARIFICATION FORM: ICD-10 Updated PLEASE DO AN ADDENDUM TO THE PROGRESS NOTE WITH ANY DOCUMENTATION UPDATES OR ADDITIONS AND CARRY THROUGH TO DC SUMMARY. THANK YOU. DATE: 07/23/19 ATTN:DR. Derrick HERBERT Please exercise your independent, professional judgment in responding to the clarification form. Clinical indicators are provided on the bottom of this form for your review. Please check appropriate box(s): [ X] Hyponatremia please specify etiology, if known _dehydration [ ] Hyponatremia due to SIADH (Syndrome of Inappropriate Secretion of Antidiuretic Hormone) [ ] Other diagnosis [ ] Unable to determine In addition, please specify: Present on Admission (POA): [ X ] Yes [ ] No [ ] Unable to determine CLINICAL INDICATORS - SIGNS / SYMPTOMS / LABS 07/21 SODIUM 133 07/22 SODIUM 134 07/21 H&P (NALINI) REPORTS HAVING LOOSE STOOLS THIS MORNING UP TO 3 TIMES, BUT STATES HIS APPETITE HAS BEEN POOR AND FEELS THIS IS THE REASON. RISK: DIARRHEA /LOOSE STOOLS (NALINI H&P/07/21) TREATMENTS: SODIUM CHLORIDE IV ( 07/21-PRESENT) SERIAL LABS (07/21-07/22) THANK YOU! HUA (This form is maintained as a part of the permanent medical record) 2014 [email or web address] All Rights Reserved [email or web address] [phone] MTDD
--- NOTE | 2019-07-23 18:58 | PDOC.HOSPP ---
- Subjective Encounter Date: 07/23/19 Subjective: reports slight improvement of cellulitis of lower extremities; tolerating oral intake - Objective Vital Signs & Weight: Vital Signs (12 hours) Temp Pulse Resp BP Pulse Ox 07/23/19 16:00 98.3 F 66 18 119/77 98 07/23/19 08:30 99 07/23/19 07:44 98.0 F 56 L 18 99/62 99 Weight Admit Weight 178 lb 0.02 oz Weight 178 lb 0.02 oz I&O: 07/22/19 07/23/19 07/24/19 06:59 06:59 06:59 Intake Total 1400 1475 1990 Output Total 800 900 Balance 600 1475 1091 Result Diagrams: 07/22/19 05:32 07/22/19 05:32 Hospitalist ROS - Review of Systems Constitutional: denies: fever, chills Gastrointestinal: denies: nausea, vomiting, abdominal pain Skin: denies: lesions, bruising - Medication Medications: Active Medications Generic Name Dose Route Start Last Admin Trade Name Freq PRN Reason Stop Dose Admin Acetaminophen 1,000 mg 07/21/19 23:06 07/22/19 20:33 Tylenol PO 1,000 mg Q6H PRN Administration Headache/Fever or Pain Citalopram Hydrobromide 20 mg 07/22/19 09:00 07/23/19 08:08 Celexa PO 20 mg DAILY JULES Administration Famotidine 20 mg 07/21/19 21:00 07/23/19 08:08 Pepcid SLOW IVP 20 mg Q12HR JULES Administration Sodium Chloride 1,000 mls @ 75 mls/hr 07/21/19 21:00 07/23/19 12:12 Normal Saline 0.9% IV 1,000 mls .[id number] JULES Administration Ceftriaxone Sodium 2 gm/ 100 mls @ 200 mls/hr 07/22/19 13:00 07/23/19 12:02 Sodium Chloride IVPB 100 mls Q24HR JULES Administration Quetiapine Fumarate 50 mg 07/22/19 21:00 07/22/19 20:33 Seroquel PO 50 mg HS JULES Administration - Exam General Appearance: NAD, awake alert Eye: PERRL, anicteric sclera ENT: normocephalic atraumatic, moist mucosa Neck: supple, no JVD Heart: RRR, no gallops Respiratory: CTAB, no wheezes, no rales Gastrointestinal: soft, non-tender, non-distended, normal bowel sounds Extremities: no cyanosis, no edema Skin: normal turgor Skin - other findings: bilaterl lower ext erythema Neurological: cranial nerve grossly intact, normal sensation to touch, no focal deficits Musculoskeletal: normal tone, normal strength, no muscle wasting Psychiatric: normal affect, normal behavior, A&O x 3 Hosp A/P (1) Cellulitis Code(s): L03.90 - CELLULITIS, UNSPECIFIED Status: Acute Qualifiers: Site of cellulitis: extremity Site of cellulitis of extremity: lower extremity Laterality: left Qualified Code(s): L03.116 - Cellulitis of left lower limb Plan: continue Vancomycin and rocephin; if no improvement by tomorrow will need to change antibiotics or possibly have imaging done r/o fluid collection (2) Lymphadenopathy, inguinal Code(s): R59.0 - LOCALIZED ENLARGED LYMPH NODES Status: Acute Plan: continue supportive care (3) Bipolar disorder Code(s): F31.9 - BIPOLAR DISORDER, UNSPECIFIED Status: Chronic Qualifiers: Active/Remission status: remission status unspecified Qualified Code(s): F31.9 - Bipolar disorder, unspecified (4) Polysubstance abuse Code(s): F19.10 - OTHER PSYCHOACTIVE SUBSTANCE ABUSE, UNCOMPLICATED Status: Chronic Plan: advise to quit
[2019-07-24] MEDS: Sodium Chloride 0.9% 1,000 ML IV SCH ×2 (01:40→17:03)
[2019-07-24] MEDS: Famotidine/PF 20 mg/2ml Vial SLOW IVP SCH ×2 (09:43→20:12)
[2019-07-24] MEDS: Citalopram 20 MG TAB PO SCH (09:44)
[2019-07-24] MEDS: cefTRIAXone\\ROCEPHIN 2 GM in Sodium Chloride 0.9% 100 ML IVPB SCH (12:54)
--- NOTE | 2019-07-24 17:17 | PDOC.HOSPP ---
- Subjective Encounter Date: 07/24/19 Subjective: feels better; his skin has significantly improved; tolerating oral intake and ambulatory - Objective Vital Signs & Weight: Vital Signs (12 hours) Temp Pulse Resp BP BP Pulse Ox 07/24/19 16:00 98.4 F 62 16 123/68 99 07/24/19 12:00 98.1 F 59 L 18 124/76 99 07/24/19 07:47 98.3 F 63 18 121/77 99 Weight Admit Weight 178 lb 0.02 oz Weight 178 lb 0.02 oz I&O: 07/23/19 07/24/19 07/25/19 06:59 06:59 06:59 Intake Total 1475 1991 840 Output Total 900 Balance 1475 1091 840 Result Diagrams: 07/22/19 05:32 07/22/19 05:32 Hospitalist ROS - Review of Systems Respiratory: denies: cough, shortness of breath Gastrointestinal: denies: nausea, abdominal pain Skin: denies: lesions - Medication Medications: Active Medications Generic Name Dose Route Start Last Admin Trade Name Freq PRN Reason Stop Dose Admin Acetaminophen 1,000 mg 07/21/19 23:06 07/22/19 20:33 Tylenol PO 1,000 mg Q6H PRN Administration Headache/Fever or Pain Citalopram Hydrobromide 20 mg 07/22/19 09:00 07/24/19 09:44 Celexa PO 20 mg DAILY JULES Administration Famotidine 20 mg 07/21/19 21:00 07/24/19 09:43 Pepcid SLOW IVP 20 mg Q12HR JULES Administration Sodium Chloride 1,000 mls @ 75 mls/hr 07/21/19 21:00 07/24/19 17:03 Normal Saline 0.9% IV 1,000 mls .[id number] JULES Administration Ceftriaxone Sodium 2 gm/ 100 mls @ 200 mls/hr 07/22/19 13:00 07/24/19 12:54 Sodium Chloride IVPB 100 mls Q24HR JULES Administration Quetiapine Fumarate 50 mg 07/22/19 21:00 07/23/19 20:22 Seroquel PO 50 mg HS JULES Administration - Exam General Appearance: NAD, awake alert Eye: PERRL, anicteric sclera ENT: normocephalic atraumatic, moist mucosa Neck: supple, no JVD Heart: RRR, no murmur Respiratory: CTAB, no wheezes, no rales Gastrointestinal: soft, non-tender, non-distended, normal bowel sounds Extremities: no cyanosis, no clubbing Skin: normal turgor, no rashes Skin - other findings: mild erythema to left leg Neurological: cranial nerve grossly intact, normal sensation to touch, no weakness, no focal deficits Musculoskeletal: normal tone Psychiatric: normal affect, normal behavior, A&O x 3, oriented to person Hosp A/P (1) Cellulitis Code(s): L03.90 - CELLULITIS, UNSPECIFIED Status: Acute Qualifiers: Site of cellulitis: extremity Site of cellulitis of extremity: lower extremity Laterality: left Qualified Code(s): L03.116 - Cellulitis of left lower limb Plan: continue IV antibiotics for next 24 hours and discharge planning on oral antibiotics tomorrow 07/25 (2) Lymphadenopathy, inguinal Code(s): R59.0 - LOCALIZED ENLARGED LYMPH NODES Status: Acute Plan: resolving (3) Bipolar disorder Code(s): F31.9 - BIPOLAR DISORDER, UNSPECIFIED Status: Chronic Qualifiers: Active/Remission status: remission status unspecified Qualified Code(s): F31.9 - Bipolar disorder, unspecified Plan: continue current antipsychotics medication (4) Polysubstance abuse Code(s): F19.10 - OTHER PSYCHOACTIVE SUBSTANCE ABUSE, UNCOMPLICATED Status: Chronic
[2019-07-25] MEDS: Sodium Chloride 0.9% 1,000 ML IV SCH (04:05)
[2019-07-25 05:13] LABS: #Basophils 0.1 thou/uL (0.0-0.2); #Eosinphils 0.3 thou/uL (0.0-0.7); #Lymphocytes 2.4 thou/uL (1.20-3.40); #Monocytes 0.5 thou/uL (0.11-0.59); #Neutrophils 2.9 thou/uL (1.40-6.50); %Basophils 1.1 % (0.0-1.0); %Eosinophils 4.4 % (0.0-10.0); %Lymphocytes 39.4 % (21.0-51.0); %Monocytes 7.7 % (0.0-10.0); %Neutrophils 47.4 % (42.0-75.0); Hemoglobin 12.7 g/dL (14.0-18.0); Mean Corpuscular HGB CONC 32.7 g/dL (32.0-36.0); Mean Corpuscular Hemoglobin 30.4 pg (27.0-31.0); Mean Platelet Volume 7.7 fL (7.4-10.4); Platelet Count 226 thou/uL (130-400); RBC Distribution Width 13.8 % (11.5-14.5); Red Blood Cell (RBC) Count 4.19 mill/uL (4.70-6.10)
[2019-07-25] MEDS: Citalopram 20 MG TAB PO SCH (08:25)
[2019-07-25] MEDS: Famotidine/PF 20 mg/2ml Vial SLOW IVP SCH (08:25)
[2019-07-25 11:30] VITALS: TEMP 98.2
[2019-07-25] MEDS: cefTRIAXone\\ROCEPHIN 2 GM in Sodium Chloride 0.9% 100 ML IVPB SCH (13:16)
[2019-07-25 16:14] VITALS: BP 109/76
--- NOTE | 2019-07-25 23:07 | DIS ---
DATE OF ADMISSION: 07/21/2019 DATE OF DISCHARGE: 07/25/2019 DISPOSITION: The patient was discharged home. FINAL DIAGNOSES: 1. Left lower extremity cellulitis, failed outpatient therapy. 2. Chronic back pain. 3. Peripheral vascular disease. 4. Anxiety and depression. 5. ADHD. CONDITION: Stable and improved. DIET: Regular diet. MEDICATIONS: Please refer to medication discharge reconciliation form. ACTIVITY: As tolerated. Do not over exert yourself, no strenuous activities. DISCHARGE INSTRUCTIONS: If any fevers, chills, nausea, vomiting, chest pain, shortness of breath, bleeding, swelling, weakness, numbness, seek immediate medical attention. CONSULTANTS: None. SIGNIFICANT LABORATORY AND DIAGNOSTIC STUDIES: Include white blood cell count of 17,400 on July 21 and 6000 on July 25. His sed rate was 39. FOLLOWUP: With primary care physician in 1 week. BRIEF HOSPITAL COURSE: Yang Pinon is a pleasant 49-year-old male who was treated as an outpatient for cellulitis, which he failed outpatient therapy, for which he required an inpatient hospitalization. He was treated with IV antibiotics with ceftriaxone and he tolerated the medications very well and over the next 72 hours, his erythema, edema significantly improved. He has been ambulatory and tolerating oral intake. He has nearly complete resolution of his cellulitis On the day of discharge, during my [id number] meeting with the patient, I discussed all discharge instructions including the need for compliance with medication, followup and when to return to the emergency room, for which he has verbalized understanding. The patient is thankful for the care provided. TIME SPENT: Total discharge time spent 35 minutes. Job ID: [id number] [facility]
== END 2019-07-25 16:13 | disposition home or self-care (01) | DRG 603 ==
LOC: ERS 14:47 → T4-B 17:20
PROVIDERS: ADMIT Internal Medicine; ATTEND Internal Medicine
DX: L03.116 Cellulitis of left lower limb (principal); E87.1 Hypo-osmolality and hyponatremia; F90.9 Attention-deficit hyperactivity disorder, unspecified type; F41.9 Anxiety disorder, unspecified; M54.9 Dorsalgia, unspecified; G89.29 Other chronic pain; E86.0 Dehydration; I73.9 Peripheral vascular disease, unspecified; F17.210 Nicotine dependence, cigarettes, uncomplicated; F19.10 Other psychoactive substance abuse, uncomplicated; I87.2 Venous insufficiency (chronic) (peripheral); F31.9 Bipolar disorder, unspecified; R59.0 Localized enlarged lymph nodes
CPT/HCPCS: 36415; 80048; 80053; 80306; 83605; 84145; 85025; 85652; 87040; 96360; 96365; J0696; J3370; J3490; Q0162; S0028

== ENCOUNTER 2019-10-28 17:34 | Emergency (ER) | payer OTHER ==
[2019-10-28 18:24] LABS: #Basophils 0.1 thou/uL (0.0-0.2); #Eosinphils 0.3 thou/uL (0.0-0.7); #Monocytes 0.4 thou/uL (0.11-0.59); #Neutrophils 2.3 thou/uL (1.40-6.50); %Basophils 1.2 % (0.0-1.0); %Eosinophils 5.5 % (0.0-10.0); %Lymphocytes 49.6 % (21.0-51.0); %Monocytes 6.8 % (0.0-10.0); %Neutrophils 36.8 % (42.0-75.0); Hemoglobin 13.6 g/dL (14.0-18.0); Mean Corpuscular HGB CONC 33.5 g/dL (32.0-36.0); Mean Corpuscular Hemoglobin 30.6 pg (27.0-31.0); Mean Corpuscular Volume 91.3 fL (78.0-98.0); Mean Platelet Volume 7.8 fL (7.4-10.4); Platelet Count 247 thou/uL (130-400); RBC Distribution Width 12.9 % (11.5-14.5); Red Blood Cell (RBC) Count 4.44 mill/uL (4.70-6.10); White Blood Cell (WBC) Count 6.1 thou/uL (4.8-10.8)
[2019-10-28 19:12] LABS: Bilirubin Negative (Negative); Blood, Urine Negative (Negative); Clarity Clear (Clear); Glucose, Urine (Dipstick) Normal (Negative); Leukocyte Negative Leu/uL (Negative); Nitrite Negative (Negative); Protein, Urine (Dipstick) Negative (Neg-Trace); Urobilinogen Normal mg/dL (Less than 2)
[2019-10-28 19:14] LABS: Acetaminophen Less than 6.0 mcg/mL (10.0-30.0); Alcohol Less than 10 mg/dL (Less than 10); Salicylate Less than 8.0 mg/dL (15.0-30.0)
[2019-10-28 19:15] LABS: ALT (SGPT) 7 U/L (8-55); AST (SGOT) 15 U/L (5-34); Albumin 3.7 g/dL (3.5-5.0); Alkaline Phosphatase 51 U/L (40-110); Anion Gap 13 mmol/L (10-20); BUN (Urea Nitrogen) 10 mg/dL (8.9-20.6); CK (CPK) 93 U/L (30-200); Calc. Creatinine Clearance 0 mL/min (70-130); Calcium 8.9 mg/dL (7.8-10.44); Carbon Dioxide 29 mmol/L (22-29); Chloride 102 mmol/L (98-107); Estimated GFR-MDRD Greater than 90; Globulin 2.6 g/dL (2.4-3.5); Glucose 80 mg/dL (70-105); Lipase 34 U/L (8-78); Potassium 4.3 mmol/L (3.5-5.1); Protein, Total 6.3 g/dL (6.0-8.3); Sodium 140 mmol/L (136-145)
[2019-10-28 19:21] LABS: Amphetamine Not Detected (NotDetected); Barbiturates Screen Not Detected (NotDetected); Benzodiazepine Screen Not Detected (NotDetected); Cocaine Metabolite Screen Not Detected (NotDetected); Medtox Control Line Valid? VALID (VALID); Medtox Reader # READER 4; Methadone Not Detected (NotDetected); Methamphetamine Not Detected (NotDetected); Opiate Screen Not Detected (NotDetected); Oxycodone Screen Not Detected (NotDetected); Phencyclidine (PCP) Not Detected (NotDetected); THC/Cannabinoid Screen Detected (NotDetected); Tricyclic Screen Not Detected (NotDetected)
[2019-10-28] MEDS ORDERED: Acetaminophen 500 MG TAB ONE (20:26)
== END 2019-10-29 03:04 ==
LOC: ERS 17:34
DX: F32.9 Major depressive disorder, single episode, unspecified (principal); F41.9 Anxiety disorder, unspecified; F90.9 Attention-deficit hyperactivity disorder, unspecified type; F17.210 Nicotine dependence, cigarettes, uncomplicated; Z79.899 Other long term (current) drug therapy
CPT/HCPCS: 36415; 80053; 80306; 80307; 81003; 82550; 83605; 83690; 84443; 85025; 87804; 96360; 96361

== ENCOUNTER 2019-11-08 11:17 | Inpatient (IN) | payer OTHER ==
[2019-11-08 11:51] LABS: #Lymphocytes 0.9 thou/uL (1.20-3.40); #Monocytes 0.2 thou/uL (0.11-0.59); #Neutrophils 9.2 thou/uL (1.40-6.50); %Basophils 0.3 % (0.0-1.0); %Eosinophils 0.1 % (0.0-10.0); %Lymphocytes 8.3 % (21.0-51.0); %Monocytes 1.5 % (0.0-10.0); %Neutrophils 89.8 % (42.0-75.0); Hemoglobin 15.3 g/dL (14.0-18.0); Mean Corpuscular Hemoglobin 30.2 pg (27.0-31.0); Mean Corpuscular Volume 94.5 fL (78.0-98.0); Mean Platelet Volume 7.7 fL (7.4-10.4); Platelet Count 197 thou/uL (130-400); RBC Distribution Width 12.7 % (11.5-14.5); Red Blood Cell (RBC) Count 5.06 mill/uL (4.70-6.10); White Blood Cell (WBC) Count 10.2 thou/uL (4.8-10.8)
[2019-11-08] MEDS ORDERED: MEROPENEM 1 GM/50 ML 1 GM in Premix Bag 1 BAG IVPB SCH ×2 (12:00→21:00)
[2019-11-08 12:08] LABS: Bilirubin Negative (Negative); Blood, Urine Negative (Negative); Clarity Clear (Clear); Glucose, Urine (Dipstick) Normal (Negative); Leukocyte Negative Leu/uL (Negative); Nitrite Negative (Negative); Protein, Urine (Dipstick) Negative (Neg-Trace); Urobilinogen Normal mg/dL (Less than 2)
[2019-11-08 12:16] LABS: ALT (SGPT) 10 U/L (8-55); AST (SGOT) 17 U/L (5-34); Albumin 4.3 g/dL (3.5-5.0); Alkaline Phosphatase 62 U/L (40-110); Anion Gap 14 mmol/L (10-20); BUN (Urea Nitrogen) 11 mg/dL (8.9-20.6); Calc. Creatinine Clearance 0 mL/min (70-130); Calcium 9.2 mg/dL (7.8-10.44); Carbon Dioxide 24 mmol/L (22-29); Chloride 101 mmol/L (98-107); Estimated GFR-MDRD 77; Globulin 3.5 g/dL (2.4-3.5); Glucose 90 mg/dL (70-105); Potassium 3.4 mmol/L (3.5-5.1); Protein, Total 7.8 g/dL (6.0-8.3); Sodium 136 mmol/L (136-145)
[2019-11-08] MEDS ORDERED: Oseltamivir 75 MG CAP PO SCH ×2 (12:45→21:00)
--- NOTE | 2019-11-08 13:06 | RAD ---
PORTABLE CHEST 1 VIEW: Date: 11/08/2019 Time: 1253 hours HISTORY: Fever, right leg pain. FINDINGS: Comparison made with exam of 04/16/19. The heart size is normal. The lungs are expanded without focal areas of consolidation, pneumothoraces , or pleural effusions. IMPRESSION: No acute process. POS: TPC
--- NOTE | 2019-11-08 13:09 | ULT ---
ULTRASOUND WITH DOPPLER DUPLEX VENOUS LOWER EXTREMITY LEFT: DATE: 11/08/2019 HISTORY: Left lower extremity pain and infection in 49-year-old male. TECHNIQUE: Color flow Doppler, spectral waveform analysis of pulsed Doppler, and grajeda-scale imaging with svetlana lola and augmentation, were used to evaluate the left common femoral, femoral, popliteal, posterior t ibial, and superficial femoral, veins; and the proximal portions of the profunda femoral and greater saphenous, veins. FINDINGS: There is normal compressibility, demonstration of blood flow by color Doppler and pulsed Doppler, and response to augmentation, in all interrogated veins. 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 The greatest transverse diameter is up to 20 mm. It has fl ow and normal compressibility. There are enlarged lymph nodes in the left groin. The largest is at least 3.7 x 1.2 x 2.5 cm. IMPRESSION: 1. No deep vein thrombosis in the left lower extremity. 2. 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 3. Left groin lymphadenopathy. jn[] POS: OFF
[2019-11-08] MEDS ORDERED: Acetaminophen 500 MG TAB ONE (13:42)
[2019-11-08] MEDS ORDERED: Ondansetron PF 4 MG/2 ML Vial IVP PRN ×2 (17:44→18:23)
[2019-11-08] MEDS ORDERED: Sodium Chloride 0.9% 1,000 ML IV SCH (17:44)
[2019-11-08] MEDS ORDERED: Ondansetron ODT 4 MG TAB SL PRN (17:44)
[2019-11-08] MEDS ORDERED: Acetaminophen 500 MG TAB PO PRN (18:23)
[2019-11-08] MEDS ORDERED: HYDROcodone/Acetaminophen 5/325 mg Tablet PO PRN (18:23)
[2019-11-08] MEDS ORDERED: Ondansetron ODT 4 MG TAB PO PRN (18:23)
[2019-11-08 18:29] VITALS: BMI 21.7
[2019-11-08] MEDS ORDERED: Ketorolac Tromethamine 30 MG/ML VIAL IVP SCH (18:30)
[2019-11-08] MEDS ORDERED: Piperacillin/Tazobactam 4.5 GM in Sodium Chloride 0.9% 100 ML IVPB SCH (18:45)
[2019-11-08] MEDS: Sodium Chloride 0.9% 1,000 ML IV SCH (18:48)
[2019-11-08] MEDS: Oseltamivir 75 MG CAP PO SCH (20:54)
[2019-11-08] MEDS: Famotidine 20 MG TAB PO SCH (20:54)
[2019-11-08] MEDS: Vancomycin 1.5 GRAM/300 ML BAG 1.5 GM in Premix Bag 1 BAG IVPB SCH (20:54)
--- NOTE | 2019-11-08 21:09 | HP ---
PRIMARY CARE PROVIDER: [facility] [place], [place]. CHIEF COMPLAINT: Generalized weakness and left lower extremity pain. HISTORY OF PRESENT ILLNESS: This is a 49-year-old male, who presents to [facility] complaining of 3 to 4 day history of increasing left lower extremity pain, swelling, and redness in the context of recurrent cellulitis of the left lower extremity with most recent admission in June 2019 for left lower extremity cellulitis requiring IV antibiotic therapy. The patient with history of peripheral vascular disease with recurrent cellulitis of the left lower extremity. The patient noted swelling and pain in the groin region with some increased redness in the front portion of his rocha. The patient denied any trauma, fall or injury. The patient states he has been compliant with his chronic medication regimen and denies any recent travel history. The patient also admits to feeling feverish with some sweating over the last 24 to 48 hours. The patient states his last influenza vaccination was in June 2019. In the emergency room, the patient underwent general evaluation including left lower extremity venous Doppler evaluation showing no evidence for DVT. The patient was noted with lymphadenopathy, but no acute thrombus. The patient was noted meeting sepsis criteria in the emergency room, receiving appropriate IV fluid resuscitation in addition to meropenem, Tamiflu, vancomycin, and acetaminophen. The patient's influenza screening was positive for influenza A. PAST MEDICAL HISTORY: 1. Recurrent left lower extremity cellulitis. 2. Chronic back pain. 3. Cleft palate. 4. Hiatal hernia. 5. Peripheral vascular disease. 6. Anxiety/depression. 7. ADHD. PAST SURGICAL HISTORY: 1. Right lower extremity, status post hyperbaric chamber therapy. 2. Status post left inguinal lymph node resection. CURRENT MEDICATIONS: 1. Celexa 20 mg p.o. daily. 2. Seroquel 50 mg p.o. at bedtime. ALLERGIES: NO KNOWN DRUG ALLERGIES. FAMILY HISTORY: No inheritable diseases per patient report. SOCIAL HISTORY: The patient smokes up to one pack of cigarettes daily. No alcohol use. Formerly abused cocaine, marijuana and amphetamines. None currently. Resides in the [place], [place] area. REVIEW OF SYSTEMS: CONSTITUTIONAL: Negative for weight loss or gain, ability to conduct usual activities. SKIN: Negative for rash, itching. EYES: Negative for double vision, pain. ENT/MOUTH: Negative for nose bleeding, neck stiffness, pain, tenderness. CARDIOVASCULAR: Negative for palpitations, dyspnea on exertion, orthopnea. RESPIRATORY: Negative for shortness of breath, wheezing, cough, hemoptysis, fever or night sweats. GASTROINTESTINAL: Negative for poor appetite, abdominal pain, heartburn, nausea, vomiting, constipation, or diarrhea. GENITOURINARY: Negative for urgency, frequency, dysuria, nocturia. MUSCULOSKELETAL: Negative for pain, swelling. NEUROLOGIC/PSYCHIATRIC: Negative for anxiety, depression. ALLERGY/IMMUNOLOGIC: Negative for skin rash, bleeding tendency. Otherwise negative except as stated per HPI. PHYSICAL EXAMINATION: VITAL SIGNS: On admission, blood pressure 88/51, pulse 128, respiratory rate is 16 temperature 100.7 degrees Fahrenheit, O2 saturation 98% on room air. GENERAL APPEARANCE: This is a 49-year-old male, alert and oriented x3, pleasant, in no acute distress. HEENT: Pupils are equal, round, reactive to light and accommodation. Extraocular muscles are intact. No scleral icterus. No conjunctival injection. Nares are patent. OP is clear. Teeth in good repair. NECK: Supple. No cervical adenopathy. No thyromegaly. No carotid bruits. No JVD appreciated. Cervical spine with full active and passive range of motion. No meningeal signs noted. CHEST: Lungs are clear to auscultation bilaterally. CARDIOVASCULAR: S1, S2 without noted murmur, rub, or gallop. Positive tachycardia. ABDOMEN: Rounded, soft, nontender, and nondistended. Bowel sounds are positive in all 4 quadrants. There is no hepatosplenomegaly. No abdominal bruits. No rebound or guarding appreciated. EXTREMITIES: Warm and dry with fair turgor. Left lower extremity with erythema in the rocha region with extension into the medial and proximal thigh on the left. Positive inguinal lymphadenopathy noted. Pulses are palpable distally at the dorsalis pedis, posterior tibial, and popliteal arteries bilaterally. Capillary refill less than 2 seconds. Chronic venous stasis changes noted of the right lower extremity. NEUROLOGIC: Cranial nerves 2 through 12 are grossly intact. No focal or lateralizing signs appreciated. PERTINENT LABORATORY AND X-RAY FINDINGS: Basic metabolic profile within normal limits. Lactic acid level 1.8. CBC showed a white blood cell count of 10.2, hemoglobin 15, hematocrit 48, platelet count 197 with 90% neutrophils. Urinalysis negative. Influenza A positive, 11/08/2019. Left lower extremity venous Doppler study dated 11/08/2019, showed no acute process. Left inguinal lymphadenopathy appreciated. Portable chest x-ray dated 11/08/2019 showed no acute cardiopulmonary process. ASSESSMENT AND PLAN: 1. Sepsis secondary to the left lower extremity cellulitis. The patient will be admitted to the telemetry unit. We will continue Zosyn 4.5 g IV q.6 hours with additional vancomycin 1.25 g IV q.12 hours. Blood cultures x2 pending. Continue IV fluids with normal saline at 125 mL/h. 2. Recurrent left lower extremity cellulitis. See #1 above. No current evidence to suggest acute thrombosis. 3. Influenza A positive. Continue Tamiflu 75 mg p.o. b.i.d. Respiratory isolation. 4. Sinus tachycardia. We will continue IV fluids with normal saline at 125 mL/h. Continue telemetry monitoring. 5. Attention deficit hyperactivity disorder. Continue home medication regimen. Monitor clinical response. 6. Prophylaxis. SCDs held due to peripheral vascular disease. Lovenox 40 mg subcutaneously daily. Pepcid 20 mg p.o. b.i.d.. CODE STATUS: Full. Surrogate medical decision maker is the patient's mother. Job ID: [id number]
[2019-11-08 21:38] LABS: Lactic Acid 1.2 mmol/L (0.5-2.2)
[2019-11-08] MEDS: Ketorolac Tromethamine 30 MG/ML VIAL IVP SCH (22:16)
[2019-11-08] MEDS ORDERED: Vancomycin HCl 1 GM in Premix Bag 1 BAG IVPB SCH (23:59)
[2019-11-09] MEDS: Piperacillin/Tazobactam 4.5 GM in Sodium Chloride 0.9% 100 ML IVPB SCH ×3 (00:13→11:25)
--- NOTE | 2019-11-09 04:27 | PDOC.EVN ---
Event Note - Event Note Event Note: Nurse called stated that pt dropped his heart rate in the low 40's pt is not symptomatic. vitals are stable. will monitor for now. pt is not on any beta blockers.
[2019-11-09] MEDS: Sodium Chloride 0.9% 1,000 ML IV SCH ×3 (04:29→17:48)
[2019-11-09] MEDS: Ketorolac Tromethamine 30 MG/ML VIAL IVP SCH ×3 (05:33→17:42)
[2019-11-09 06:26] LABS: Anion Gap 10 mmol/L (10-20); BUN (Urea Nitrogen) 12 mg/dL (8.9-20.6); Calc. Creatinine Clearance 132 mL/min (70-130); Calcium 7.9 mg/dL (7.8-10.44); Carbon Dioxide 24 mmol/L (22-29); Chloride 108 mmol/L (98-107); Estimated GFR-MDRD Greater than 90; Glucose 102 mg/dL (70-105); Potassium 3.8 mmol/L (3.5-5.1); Sodium 138 mmol/L (136-145)
[2019-11-09 06:28] LABS: Band 24 % (5-11); Eosinophils 1 % (0-10); Hemoglobin 11.6 g/dL (14.0-18.0); Lymphocytes 20 % (21-51); MDiff Complete? YES; Mean Corpuscular HGB CONC 32.5 g/dL (32.0-36.0); Mean Corpuscular Hemoglobin 30.8 pg (27.0-31.0); Mean Corpuscular Volume 94.9 fL (78.0-98.0); Mean Platelet Volume 8.2 fL (7.4-10.4); Monocytes 2 % (0-10); Neutrophil 53 % (42-75); Platelet Count 136 thou/uL (130-400); Platelet Morphology Comment Appears Adequate; RBC Distribution Width 12.5 % (11.5-14.5); Red Blood Cell (RBC) Count 3.75 mill/uL (4.70-6.10); White Blood Cell (WBC) Count 8.4 thou/uL (4.8-10.8)
[2019-11-09] MEDS: Famotidine 20 MG TAB PO SCH ×2 (08:23→20:06)
[2019-11-09] MEDS: Enoxaparin Sodium 40 MG/0.4 ML SYRINGE SC SCH (08:23)
[2019-11-09] MEDS: Oseltamivir 75 MG CAP PO SCH ×2 (08:23→20:06)
[2019-11-09] MEDS: Vancomycin 1.5 GRAM/300 ML BAG 1.5 GM in Premix Bag 1 BAG IVPB SCH (08:24)
[2019-11-09 16:22] LABS: Hemoglobin 12.2 g/dL (14.0-18.0)
--- NOTE | 2019-11-09 16:32 | PDOC.HOSPP ---
- Subjective Subjective: Doing ok. Has had several bouts of diarrhea. 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 Denies any NSAIDs. Does not describe it as characteristic of melena. Has a scar in the left groin area. Says he has been battling recurrent cellulitis since he was 14 years old. At one time, had a LN in the left inguinal area that was the size of an egg. Surgeon in [place] removed it. He knows nothing of the pathology. Was told that would fix the cellulitis, but had recurrence in three years. Indicated that the erythema starts at the incisional scare and works its way distally. He does report frequent LE edema with the need for "support hose". - Objective Vital Signs & Weight: Vital Signs (12 hours) Temp Pulse Resp BP Pulse Ox 11/09/19 15:39 98.1 F 57 L 16 110/62 99 11/09/19 11:19 99.1 F 73 18 120/59 L 99 11/09/19 07:37 100.1 F H 76 17 97/71 99 Weight Weight 175 lb 9.6 oz I&O: 11/08/19 11/09/19 11/10/19 06:59 06:59 06:59 Intake Total 2100 Output Total 1800 Balance 300 Result Diagrams: 11/09/19 16:00 11/09/19 06:00 Hospitalist ROS - Medication Medications: Active Medications Generic Name Dose Route Start Last Admin Trade Name Freq PRN Reason Stop Dose Admin Acetaminophen 1,000 mg 11/08/19 18:23 11/09/19 08:23 Tylenol PO 1,000 mg Q6H PRN Administration Mild Pain (1-3) Enoxaparin Sodium 40 mg 11/09/19 09:00 11/09/19 08:23 Lovenox SC 40 mg 0900 JULES Administration Famotidine 20 mg 11/08/19 21:00 11/09/19 08:23 Pepcid PO 20 mg BID JULES Administration Sodium Chloride 1,000 mls @ 125 mls/hr 11/08/19 18:23 11/09/19 08:24 Normal Saline 0.9% IV 1,000 mls .Q8H JULES Administration Piperacillin Sod/Tazobactam 100 mls @ 200 mls/hr 11/08/19 23:59 11/09/19 11: 25 Sod 4.5 gm/ Sodium Chloride IVPB 100 mls Q6HR JULES Administration Vancomycin HCl 1.5 gm/ Device 300 mls @ 200 mls/hr 11/08/19 21:00 11/09/19 08 :24 IVPB 300 mls Q12HR JULES Administration Ketorolac Tromethamine 30 mg 11/08/19 23:59 11/09/19 11:25 Toradol IVP 11/13/19 23:59 30 mg Q6HR JULES Administration Oseltamivir Phosphate 75 mg 11/08/19 21:00 11/09/19 08:23 Tamiflu PO 11/13/19 09:01 75 mg BID JULES Administration Sodium Chloride 10 ml 11/08/19 21:00 11/09/19 08:24 Flush - Normal Saline IVF 10 ml Q12HR JULES Administration - Exam General Appearance: NAD, awake alert Heart: RRR, no murmur, no gallops, no rubs, normal peripheral pulses Respiratory: CTAB, no wheezes, no rales, no ronchi, normal chest expansion, no tachypnea, normal percussion Gastrointestinal: soft, non-tender, non-distended, normal bowel sounds, no palpable masses, no hepatomegaly, no splenomegaly, no bruit Extremities: no edema (Stasis changes B calves. No erythema on the right.) Extremities - other findings: Erythema L foot, calf, lymphatic spread up to the incisional scar L groin. Musculoskeletal: normal tone, normal strength, no muscle wasting Psychiatric: normal affect, normal behavior Hosp A/P (1) Lymphangitis Code(s): I89.1 - LYMPHANGITIS Status: Acute (2) Bipolar disorder Code(s): F31.9 - BIPOLAR DISORDER, UNSPECIFIED Status: Chronic Qualifiers: Active/Remission status: remission status unspecified Qualified Code(s): F31.9 - Bipolar disorder, unspecified (3) Chronic venous insufficiency Status: Chronic (4) Cellulitis of left leg Code(s): L03.116 - CELLULITIS OF LEFT LOWER LIMB Status: Suspected (5) Influenza A Code(s): J10.1 - FLU DUE TO OTH IDENT INFLUENZA VIRUS W OTH RESP MANIFEST Status: Acute - Plan Will check stools for heme. Recheck H/H. Continue Vanc/Zosyn. Consult Dr. Ingram. Can likely switch to Rocephin. Will likely need some suppression long-term. Consider CT Left inguinal area to assess for possible chronic abscess at old surgical site. Continue Tamiflu. Continue home meds for the Bipolar disorder.
[2019-11-09] MEDS: cefTRIAXone\\ROCEPHIN 1 GM in Sodium Chloride 0.9% 100 ML IVPB SCH (17:42)
--- NOTE | 2019-11-09 23:40 | CON ---
DATE OF CONSULTATION: 11/09/2019 REASON FOR CONSULTATION: Cellulitis with lymphangitis. HISTORY OF PRESENT ILLNESS: A 49-year-old who has history of recurrent episodes of cellulitis, lymphangitis, and lymphadenitis. It looks like he had one episode of necrotizing infection, which failed hyperbaric treatment and also has history of inpatient psychiatric admission for management of depression, who developed worsening left lower extremity pain associated with erythema. On arrival, his temperature 100.7, pulse 128, BP 88/51. He appeared in some distress and lungs described as clear breath sounds. Heart examination was normal and there is erythema in the left lower extremity extending all the way to the groin from the foot. Initial findings included also white cell count 10.2, hemoglobin 15, platelets 197, 89% neutrophils. Sodium 136, creatinine 1.03 with normal liver profile. Urinalysis was normal. The patient had positive antigen test for influenza A and he is currently receiving oseltamivir, vancomycin, and Zosyn. Pain has improved in the left lower extremity. He is not coughing that much. No headaches. No visual symptoms, sore throat, odynophagia, dysphagia. No chest pain. No abdominal pain or diarrhea. No genitourinary symptoms. No joint symptoms. No neurological symptoms. PAST MEDICAL HISTORY: Depression with psychiatric admission, lymphangitis, lymphadenitis with cellulitis in lower extremities, previous surgical debridement, hyperbaric treatment, history of cleft palate, hiatal hernia, PVD, ADHD. ALLERGIES: NONE. FAMILY HISTORY: Noncontributory. SOCIAL HISTORY: Has one child. Still smoker. No alcoholic beverage use. History of cocaine in the past and amphetamines, but not currently. MEDICATIONS: At the moment, he is on Tylenol, [place], Celexa, Lovenox, Pepcid, Toradol, Zofran, Tamiflu, Zosyn, Seroquel, and vancomycin. PHYSICAL EXAMINATION: VITAL SIGNS: T-max 103, now 100.1 and 98, BP 110/62, pulse 57, respirations 16, and O2 saturation 99%. GENERAL: He is in no distress, a little bit of facial flushing of the skin. The left lower extremity with area of cellulitis and then lymphangitis ascending towards the left groin. The right side has areas of stasis dermatitis. Peripheral IV access and is voiding in the toilet. No lymphadenopathy. HEENT: Ocular movements conjugate. Pupils are equal. Oral cavity unremarkable. NECK: Supple. LUNGS: Symmetric. Clear breath sounds. HEART: S1-S2, regular rate. No S3, S4. ABDOMEN: Soft, not distended or tender. No ascites. No bladder distention. No organomegaly. EXTREMITIES: No joint inflammatory activity. Pulses are 1+ in dorsalis pedis. NEUROLOGIC: He is awake, oriented. He follows commands. LABORATORY STUDIES: His urinalysis was normal. White cell count is down to 8.4, hemoglobin 11, platelets 136, 24% bands. Microbiology, negative blood cultures. IMAGING DATA: Includes vascular ultrasound with no evidence of deep vein thrombosis. There is evidence of left groin lymphadenitis and arterial evaluation in 2016 with normal waveforms. ASSESSMENT: 1. History of depression, including admission to psychiatric hospital. 2. History of recurrent cellulitis, lymphangitis, previous area of lymphadenectomy, left groin. 3. Influenza A infection. 4. Recurrence of cellulitis, left lower extremity with lymphangitis. DISCUSSION: Most likely scenario is beta-hemolytic streptococcal cellulitis. Recommend switching to Rocephin or cefazolin and then transition to Keflex oral and then suppressive penicillin VK 250 mg twice daily for one year plus compression stockings. He would need to wear bilateral compression stockings. Job ID: [id number]
[2019-11-10 04:44] LABS: #Eosinphils 0.1 thou/uL (0.0-0.7); #Lymphocytes 2.1 thou/uL (1.20-3.40); #Monocytes 0.5 thou/uL (0.11-0.59); #Neutrophils 2.3 thou/uL (1.40-6.50); %Basophils 0.5 % (0.0-1.0); %Eosinophils 2.2 % (0.0-10.0); %Lymphocytes 42.1 % (21.0-51.0); %Neutrophils 46.2 % (42.0-75.0); Hemoglobin 11.4 g/dL (14.0-18.0); Mean Corpuscular HGB CONC 32.7 g/dL (32.0-36.0); Mean Corpuscular Hemoglobin 31.1 pg (27.0-31.0); Mean Platelet Volume 8.4 fL (7.4-10.4); Platelet Count 127 thou/uL (130-400); RBC Distribution Width 12.6 % (11.5-14.5); Red Blood Cell (RBC) Count 3.67 mill/uL (4.70-6.10); White Blood Cell (WBC) Count 4.9 thou/uL (4.8-10.8)
[2019-11-10 05:06] LABS: Anion Gap 7 mmol/L (10-20); BUN (Urea Nitrogen) 9 mg/dL (8.9-20.6); Calc. Creatinine Clearance 154 mL/min (70-130); Calcium 7.9 mg/dL (7.8-10.44); Carbon Dioxide 25 mmol/L (22-29); Chloride 112 mmol/L (98-107); Estimated GFR-MDRD Greater than 90; Glucose 95 mg/dL (70-105); Sodium 140 mmol/L (136-145)
[2019-11-10] MEDS: Ketorolac Tromethamine 30 MG/ML VIAL IVP SCH ×4 (05:37→18:31)
[2019-11-10] MEDS: Sodium Chloride 0.9% 1,000 ML IV SCH ×3 (05:38→16:43)
[2019-11-10] MEDS: Famotidine 20 MG TAB PO SCH ×2 (07:47→21:35)
[2019-11-10] MEDS: Oseltamivir 75 MG CAP PO SCH ×2 (07:47→22:05)
[2019-11-10] MEDS: Citalopram 20 MG TAB PO SCH (07:47)
[2019-11-10] MEDS: Enoxaparin Sodium 40 MG/0.4 ML SYRINGE SC SCH (07:51)
--- NOTE | 2019-11-10 17:48 | PRG ---
DATE OF SERVICE: 11/10/2019 SUBJECTIVE: Feeling better. He is still with some cough, in mild pain in the left lower extremity. OBJECTIVE: VITAL SIGNS: Normal. EXTREMITIES: Marked reduction in the erythema still with an area concentrated around the left groin. LUNGS: Clear. HEART: S1 and S2. Regular rate. ABDOMEN: Soft. LABORATORY DATA: White cell count 4.9, hemoglobin 11.4, platelets 127. Creatinine 0.67. ASSESSMENT: 1. Depression. 2. Cellulitis recurrent. 3. Lymphangitis. 4. Influenza A infection. DISCUSSION: The patient should be ready for transition to oral Keflex tomorrow, discharge planning, treat him for another 7 days and then switch to penicillin VK 250 mg twice daily for one year plus compression stockings. Job ID: [id number]
[2019-11-10] MEDS: cefTRIAXone\\ROCEPHIN 1 GM in Sodium Chloride 0.9% 100 ML IVPB SCH (18:31)
--- NOTE | 2019-11-10 22:21 | PDOC.HOSPP ---
- Subjective Subjective: Feels ok. No complaints today. - Objective Vital Signs & Weight: Vital Signs (12 hours) Temp Pulse Resp BP Pulse Ox 11/10/19 20:00 98.1 F 52 L 18 131/86 97 11/10/19 16:00 98.2 F 52 L 20 138/84 99 11/10/19 11:50 98.6 F 61 18 120/74 100 Weight Weight 177 lb I&O: 11/09/19 11/10/19 11/11/19 06:59 06:59 06:59 Intake Total 2100 2900 1375 Output Total 1800 2600 Balance 896 085 1528 Result Diagrams: 11/10/19 04:10 11/10/19 04:10 Hospitalist ROS - Medication Medications: Active Medications Generic Name Dose Route Start Last Admin Trade Name Freq PRN Reason Stop Dose Admin Acetaminophen 1,000 mg 11/08/19 18:23 11/09/19 08:23 Tylenol PO 1,000 mg Q6H PRN Administration Mild Pain (1-3) Citalopram Hydrobromide 20 mg 11/10/19 09:00 11/10/19 07:47 Celexa PO 20 mg DAILY JULES Administration Enoxaparin Sodium 40 mg 11/09/19 09:00 11/10/19 07:51 Lovenox SC Not Given 0900 JULES Famotidine 20 mg 11/08/19 21:00 11/10/19 21:35 Pepcid PO 20 mg BID JULES Administration Sodium Chloride 1,000 mls @ 125 mls/hr 11/08/19 18:23 11/10/19 16:43 Normal Saline 0.9% IV 1,000 mls .Q8H JULES Administration Ceftriaxone Sodium 1 gm/ 100 mls @ 200 mls/hr 11/09/19 18:00 11/10/19 18:31 Sodium Chloride IVPB 100 mls Q24HR JULES Administration Ketorolac Tromethamine 30 mg 11/08/19 23:59 11/10/19 18:31 Toradol IVP 11/13/19 23:59 30 mg Q6HR JULES Administration Oseltamivir Phosphate 75 mg 11/08/19 21:00 11/10/19 22:05 Tamiflu PO 11/13/19 09:01 75 mg BID JULES Administration Quetiapine Fumarate 50 mg 11/09/19 21:00 11/10/19 21:35 Seroquel PO 50 mg HS JULES Administration Sodium Chloride 10 ml 11/08/19 21:00 11/10/19 21:35 Flush - Normal Saline IVF 10 ml Q12HR JULES Administration - Exam General Appearance: NAD Heart: RRR, no murmur, no gallops, no rubs, normal peripheral pulses Respiratory: CTAB, no wheezes, no rales, no ronchi, normal chest expansion, no tachypnea, normal percussion Gastrointestinal: soft, non-tender, non-distended, normal bowel sounds, no palpable masses, no hepatomegaly, no splenomegaly, no bruit Extremities - other findings: Vast improvement of erythema. Modest residual at proximal thigh. Neurological: no focal deficits Musculoskeletal: normal tone Psychiatric: normal affect, normal behavior, A&O x 3 Hosp A/P (1) Cellulitis of left leg Code(s): L03.116 - CELLULITIS OF LEFT LOWER LIMB Status: Suspected (2) Lymphangitis Code(s): I89.1 - LYMPHANGITIS Status: Acute (3) Bipolar disorder Code(s): F31.9 - BIPOLAR DISORDER, UNSPECIFIED Status: Chronic Qualifiers: Active/Remission status: remission status unspecified Qualified Code(s): F31.9 - Bipolar disorder, unspecified (4) Chronic venous insufficiency Status: Chronic (5) Influenza A Code(s): J10.1 - FLU DUE TO OTH IDENT INFLUENZA VIRUS W OTH RESP MANIFEST Status: Acute - Plan Heme check negative. repeat h/h ok. Rocephin today. Keflex and DC tomorrow. Continue Tamiflu. Continue home meds for the Bipolar disorder.
[2019-11-11] MEDS: Ketorolac Tromethamine 30 MG/ML VIAL IVP SCH ×3 (00:31→12:10)
[2019-11-11] MEDS: Sodium Chloride 0.9% 1,000 ML IV SCH ×2 (02:07→12:10)
[2019-11-11] MEDS: Famotidine 20 MG TAB PO SCH (09:09)
[2019-11-11] MEDS: Citalopram 20 MG TAB PO SCH (09:09)
[2019-11-11] MEDS: Enoxaparin Sodium 40 MG/0.4 ML SYRINGE SC SCH (09:11)
[2019-11-11] MEDS: Oseltamivir 75 MG CAP PO SCH (10:14)
[2019-11-11 12:04] VITALS: BP 141/91; TEMP 98.3
--- NOTE | 2019-11-11 20:08 | DIS ---
DATE OF ADMISSION: 11/08/2019 DATE OF DISCHARGE: 11/11/2019 DISCHARGE DIAGNOSES: 1. Left lower extremity cellulitis with lymphangitic spread. 2. Lymphangitis. 3. Influenza A. 4. History of chronic venous insufficiency of lower extremities. 5. History of bipolar disorder. HISTORY OF PRESENT ILLNESS: This patient is a 49-year-old male with a history of recurrent cellulitis of the left lower extremity. The patient presented with erythema extending from the calf up to the left groin area, where he had previously had a lymph node resected for similar issues. He presented via the emergency department, where his workup also was notable for a positive flu screen. HOSPITAL COURSE: The patient was admitted to the hospital, started on IV vancomycin and Zosyn. He was given some IV hydration and continued with his usual home medications. He had consultation by Dr. Ingram, who suspected strep, changed him to Rocephin. By the following day, the patient had dramatic improvement of his lower extremity erythema. He maintained isolation and Tamiflu for his influenza, but never again became febrile and felt quite well generally. With substantial resolution of his erythema and being afebrile, he was felt to be stable for discharge to home for outpatient treatment. PHYSICAL EXAMINATION: VITAL SIGNS: On the day of discharge, temperature is 97.9, pulse 60, respirations 15, O2 saturation 94%, BP 128/83. GENERAL: He is awake and alert. HEART: Regular rate and rhythm. LUNGS: Clear. ABDOMEN: Benign. EXTREMITIES: Left lower extremity has faint erythema in the proximal anterior thigh just below the old incisional scar. There is no erythema in the calf. There is no warmth or tenderness in this area. DISPOSITION: The patient is discharged to home. DISCHARGE MEDICATIONS: He is to be on p.o. Keflex 500 mg p.o. b.i.d. for one week, then he will transition to penicillin VK 250 mg b.i.d. for one year. He will have Tamiflu 75 mg b.i.d., Keflex 500 mg q.12. He will continue with his Celexa 20 mg daily and Seroquel 50 mg p.o. at bedtime. FOLLOWUP: He is to follow up with a PCP of his choice. He will have a regular diet and activity level and he can return to the hospital at any time should he feel the need to do so. Time spent in discharge activities was 30 min. Job ID: [id number] MTDD
--- NOTE | 2019-11-13 15:32 | EKG ---
Test Reason : Blood Pressure : / mmHG Vent. Rate : 110 BPM Atrial Rate : 110 BPM P-R Int : 138 ms QRS Dur : 090 ms QT Int : 318 ms P-R-T Axes : 075 019 046 degrees QTc Int : 430 ms Sinus tachycardia Otherwise normal ECG Confirmed by SERVANDO SELBY, CHEN ([id number]), clinical editor RUSH GARCIA ([id number]) on 11/13/2019 3:32:00 PM Referred By: Confirmed By:CHEN AL MD
== END 2019-11-11 12:45 | disposition home or self-care (01) | DRG 872 ==
LOC: ERS 11:17 → ERHOLD 12:51 → 2NO 15:23 → SJJU 11-10 16:03
PROVIDERS: ADMIT Family Medicine; ATTEND Family Medicine
DX: A41.9 Sepsis, unspecified organism (principal); L03.116 Cellulitis of left lower limb; J10.1 Influenza due to other identified influenza virus with other respiratory manifestations; I87.2 Venous insufficiency (chronic) (peripheral); F31.9 Bipolar disorder, unspecified; G89.29 Other chronic pain; F41.9 Anxiety disorder, unspecified; F90.9 Attention-deficit hyperactivity disorder, unspecified type; F17.210 Nicotine dependence, cigarettes, uncomplicated; F12.10 Cannabis abuse, uncomplicated; F15.10 Other stimulant abuse, uncomplicated; I73.9 Peripheral vascular disease, unspecified
CPT/HCPCS: 36415; 71045; 80048; 80053; 81003; 82274; 83605; 83735; 84443; 85007; 85025; 85027; 87040; 87804; 93005; J0696; J1650; J1885; J2185; J2543; J3370; J3490

== ENCOUNTER 2020-01-13 23:20 | Emergency (ER) | payer OTHER ==
[2020-01-13] MEDS ORDERED: Ondansetron ODT 4 MG TAB ONE (23:30)
== END 2020-01-13 23:58 | disposition home or self-care (01) ==
LOC: ERS 23:20
DX: R11.0 Nausea (principal); R10.10 Upper abdominal pain, unspecified; F41.9 Anxiety disorder, unspecified; F32.9 Major depressive disorder, single episode, unspecified; F90.9 Attention-deficit hyperactivity disorder, unspecified type; F17.210 Nicotine dependence, cigarettes, uncomplicated; Z79.899 Other long term (current) drug therapy
CPT/HCPCS: 99281; Q0162

== ENCOUNTER 2020-07-13 23:08 | Emergency (ER) | payer OTHER | END 2020-07-14 00:47 | disposition home or self-care (01) | LOC: ERS 23:08 | DX: G89.29 Other chronic pain (principal); M54.5 Low back pain; F41.9 Anxiety disorder, unspecified; F32.9 Major depressive disorder, single episode, unspecified; F90.9 Attention-deficit hyperactivity disorder, unspecified type; F17.210 Nicotine dependence, cigarettes, uncomplicated; Z79.899 Other long term (current) drug therapy | CPT/HCPCS: 99281 ==

== ENCOUNTER 2020-08-23 21:52 | Emergency (ER) | payer OTHER ==
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
== END 2020-08-24 01:25 | disposition home or self-care (01) ==
LOC: ERS 21:52
DX: L03.116 Cellulitis of left lower limb (principal); R60.0 Localized edema; F41.9 Anxiety disorder, unspecified; F32.9 Major depressive disorder, single episode, unspecified; F17.210 Nicotine dependence, cigarettes, uncomplicated; Z79.899 Other long term (current) drug therapy

== ENCOUNTER 2021-02-16 00:42 | Emergency (ER) | payer OTHER ==
[2021-02-16] MEDS ORDERED: Ondansetron ODT 8 MG TAB ONE (00:59)
== END 2021-02-16 01:08 | disposition home or self-care (01) ==
LOC: ERS 00:42
DX: F10.129 Alcohol abuse with intoxication, unspecified (principal); R07.9 Chest pain, unspecified; F17.210 Nicotine dependence, cigarettes, uncomplicated; Z79.899 Other long term (current) drug therapy
CPT/HCPCS: 71045; 93005; Q0162

== ENCOUNTER 2021-03-30 00:53 | Emergency (ER) | payer OTHER ==
[2021-03-30] MEDS ORDERED: Ketorolac Tromethamine 30 MG/ML VIAL ONE (01:21)
== END 2021-03-30 01:30 | disposition home or self-care (01) ==
LOC: ERS 00:53
DX: M54.5 Low back pain (principal); X50.0XXA Overexertion from strenuous movement or load, initial encounter
CPT/HCPCS: 99283; J1885

== ENCOUNTER 2021-04-24 23:49 | Emergency (ER) | payer OTHER | END 2021-04-25 00:04 | LOC: ERS 23:49 | DX: E11.621 Type 2 diabetes mellitus with foot ulcer (principal); L97.519 Non-pressure chronic ulcer of other part of right foot with unspecified severity | CPT/HCPCS: 36416; 99283 ==

== ENCOUNTER 2021-05-06 13:16 | Emergency (ER) | payer OTHER ==
[2021-05-06] MEDS ORDERED: Ketorolac Tromethamine 30 MG/ML VIAL ONE (16:19)
== END 2021-05-06 16:48 | disposition home or self-care (01) ==
LOC: ERS 13:16
DX: M54.6 Pain in thoracic spine (principal); F17.210 Nicotine dependence, cigarettes, uncomplicated; Z79.899 Other long term (current) drug therapy
CPT/HCPCS: 96372; 99283; J1885

== ENCOUNTER 2022-02-22 18:31 | Emergency (ER) | payer OTHER ==
[2022-02-22 19:37] LABS: #Basophils 0.1 thou/uL (0.0-0.2); #Eosinphils 0.1 thou/uL (0.0-0.7); #Lymphocytes 2.7 thou/uL (1.20-3.40); #Monocytes 0.9 thou/uL (0.11-0.59); #Neutrophils 4.3 thou/uL (1.40-6.50); %Basophils 1.1 % (0.0-1.0); %Eosinophils 0.7 % (0.0-10.0); %Lymphocytes 33.4 % (21.0-51.0); %Monocytes 11.6 % (0.0-10.0); %Neutrophils 53.3 % (42.0-75.0); Hemoglobin 11.8 g/dL (14.0-18.0); Mean Corpuscular HGB CONC 33.5 g/dL (32.0-36.0); Mean Corpuscular Hemoglobin 31.4 pg (27.0-31.0); Mean Corpuscular Volume 93.8 fL (78.0-98.0); Mean Platelet Volume 6.9 fL (7.4-10.4); Platelet Count 201 thou/uL (130-400); Red Blood Cell (RBC) Count 3.74 mill/uL (4.70-6.10)
[2022-02-22 19:56] LABS: ALT (SGPT) 19 U/L (8-55); AST (SGOT) 50 U/L (5-34); Albumin 4.4 g/dL (3.5-5.0); Alkaline Phosphatase 60 U/L (40-110); Anion Gap 13 mmol/L (10-20); BUN (Urea Nitrogen) 14 mg/dL (8.9-20.6); Bilirubin, Total 2.1 mg/dL (0.2-1.2); Calc. Creatinine Clearance 0 mL/min (70-130); Calcium 9.2 mg/dL (7.8-10.44); Carbon Dioxide 25 mmol/L (22-29); Chloride 100 mmol/L (98-107); Globulin 3.3 g/dL (2.4-3.5); Glucose 110 mg/dL (70-105); Potassium 3.8 mmol/L (3.5-5.1); Protein, Total 7.7 g/dL (6.0-8.3); Sodium 134 mmol/L (136-145)
== END 2022-02-22 20:46 | disposition home or self-care (01) ==
LOC: ERS 18:31
DX: M79.672 Pain in left foot (principal); F17.210 Nicotine dependence, cigarettes, uncomplicated
CPT/HCPCS: 80053; 85025

== ENCOUNTER 2022-03-01 02:37 | Emergency (ER) | payer OTHER | END 2022-03-01 02:53 | disposition home or self-care (01) | LOC: ERS 02:37 | DX: L03.116 Cellulitis of left lower limb (principal); F17.210 Nicotine dependence, cigarettes, uncomplicated | CPT/HCPCS: 99283 ==